=== PATIENT | female | born 1955 | race Caucasian/White ===

== ENCOUNTER → 2017-01-29 | Outpatient (CLI) | payer OTHER | LOC: CLAB 14:59 | PROVIDERS: ATTEND Family Medicine | DX: M50.322 Other cervical disc degeneration at C5-C6 level (principal) | CPT/HCPCS: 72040-PO ==

== ENCOUNTER → 2017-06-01 | Outpatient (CLI) | payer OTHER | LOC: CIMAGING 15:08 | PROVIDERS: ATTEND Family Medicine | DX: M51.36 Other intervertebral disc degeneration, lumbar region (principal); M53.86 Other specified dorsopathies, lumbar region | CPT/HCPCS: 72100-PO ==

== ENCOUNTER → 2017-07-24 | Outpatient (CLI) | payer OTHER | LOC: FIMAGING 19:16 | PROVIDERS: ATTEND Family Medicine | DX: S33.140A Subluxation of L4/L5 lumbar vertebra, initial encounter (principal); M51.36 Other intervertebral disc degeneration, lumbar region; M51.27 Other intervertebral disc displacement, lumbosacral region; M48.061 Spinal stenosis, lumbar region without neurogenic claudication ==

== ENCOUNTER 2017-10-04 17:45 | Emergency (ER) | payer OTHER ==
[2017-10-04] MEDS ORDERED: DEXAMETHASONE 10 MG/ML VIAL IVP ONE (18:41)
[2017-10-04] MEDS ORDERED: KETOROLAC 15 MG/1 ML SDV IVP ONE (18:41)
[2017-10-04] MEDS ORDERED: CYCLOBENZAPRINE 10 MG TAB PO ONE (18:43)
--- NOTE | 2017-10-04 18:43 | EDPHY ---
General Time Seen by Provider: 10/04/17 18:22 Narrative: CHIEF COMPLAINT: Low back pain HISTORY OF PRESENT ILLNESS: Patient presents with complaints of low back pain. This has been present for several months. It is located in the lumbar spine only. She does have radicular complaints into the left leg. She says she has had ongoing workup since May with MRIs, conservative therapy and epidural injections. She says over the past few days the pain has increased severely. She has some tingling of the leg and decreased size of her left calf. She has no numbness. No incontinence of bowel or bladder. No difficulty ambulating but it is painful. No trauma or injury. She has no fever or chills. No redness or warmth to the back. No headache. She contacted her forestry aide and physician at [facility] recommended she present to the emergency department. No other associated complaints or modifying factors. REVIEW OF SYSTEMS: Ten systems reviewed and are negative unless otherwise noted in the HPI PCP: Dr. Greenfield SPECIALISTS: [facility] PAST MEDICAL HISTORY: Fibromyalgia, chronic fatigue, TBI, sinusitis, hypertension PAST SURGICAL HISTORY: Hysterectomy, appendectomy, , sinus washout FAMILY HISTORY: Noncontributory EXAMINATION General Appearance: Alert, no distress Head: normocephalic, atraumatic Eyes: Pupils equal and round, no conjunctival pallor or injection ENT, Mouth: Mucous membranes moist Neck: Normal inspection, supple, non-tender Respiratory: Lungs are clear to auscultation Cardiovascular: Regular rate and rhythm Gastrointestinal: Abdomen is soft and nontender Back: non-tender, no bony abnormalities Neurological: GCS 15. A&O, nonfocal, steady gait. Patellar reflexes symmetric at 2+. Strength is 5/5 in the right lower extremity. Strength is 4/5 in the left knee and left ankle. Straight leg raises are negative symmetrically. Skin: Warm and dry, no rash. No erythema or signs of infection over the lumbar spine. Extremities: Nontender, no pedal edema. Symmetric range of motion lower extremities. Psychiatric: Mood and affect normal DIFFERENTIAL DIAGNOSES: Including but not limited to MDM: 6:35 p.m. Low back pain with left-sided radiculopathy of increasing severity over the past few days. Patient has a normal neuro examination with exception of mild weakness of the left knee and ankle compared to the right by 1. She has no incontinence of bowel or bladder. No saddle anesthesia. She is ambulatory without difficulty. She has been only on Tylenol Neurontin thus I have ordered IV steroids, IV Toradol and Flexeril. She is requesting no narcotics at this time. MRI was performed in July of this year we are reporting images. 7:15 p.m. Patient re-evaluated and is starting to feel better. I do feel she is stable for discharge home as she has no evidence of acute cord compression or cauda equina. I discussed with Dr. Flores and he agrees. She will be discharged home with Medrol Dosepak, tramadol and instructions to follow up with her established [facility] physician. I will also referral to Neurosurgery. She is comfortable this plan discharged home fully ambulatory in no acute distress but SUPERVISION: Patient was independently examined, but I discussed the case with my secondary supervising physician Dr. Flores - History Smoking Status: Former smoker - Objective Vital Signs: Initial Vital Signs Temperature (C) 98.2 F 10/04/17 17:52 Heart Rate 86 10/04/17 17:52 Respiratory Rate 18 10/04/17 17:52 Blood Pressure 205/95 H 10/04/17 17:52 O2 Sat (%) 96 10/04/17 17:52 O2 Delivery Mode Room Air Allergies/Adverse Reactions: acetaminophen [From Percocet] Allergy (Verified 10/04/17 17:49) oxycodone HCl [From Percocet] Allergy (Verified 10/04/17 17:49) Home Medications: Medication Instructions Recorded Atorvastatin Calcium 10/04/17 Diazepam [Valium 5 MG (*)] 5 mg PO TID PRN #15 tab 10/04/17 Fexofenadine HCl 10/04/17 Gabapentin 10/04/17 Levothyroxine 10/04/17 Losartan Potassium 10/04/17 Nexium 10/04/17 Ondansetron Odt [Zofran Odt 4 mg 4 mg PO Q6 PRN #12 tab 10/04/17 (*)] methylPREDNISolone [Medrol Dose 1 each PO AD #1 ea 10/04/17 Carl] traMADol [Ultram 50 mg (*)] 50 mg PO Q4 PRN #12 tab 10/04/17 Medications Given: Discontinued Medications Cyclobenzaprine HCl (Flexeril) 10 mg PO EDNOW ONE Stop: 10/04/17 18:44 Last Admin: 10/04/17 19:08 Dose: 10 mg Dexamethasone (Decadron Injection) 10 mg IVP EDNOW ONE Stop: 10/04/17 18:42 Last Admin: 10/04/17 19:09 Dose: 10 mg Ketorolac Tromethamine (Toradol) 15 mg IVP EDNOW ONE Stop: 10/04/17 18:42 Last Admin: 10/04/17 19:09 Dose: 15 mg Departure - Departure Disposition: Home, Routine, Self-Care Clinical Impression: Lumbar disc disease with radiculopathy Condition: Good Instructions: Lumbar Radiculopathy (ED) Additional Instructions: 1. Tramadol as prescribed as needed for pain 2. Medrol Dosepak as prescribed, 1st dose tomorrow morning with breakfast 3. Nausea medications as prescribed as needed 4. Valium as prescribed as needed for muscle relaxant 5. contact her established physicians and the neurosurgeon as provided for you this evening Referrals: Jeanne Greenfield DO [Primary Care Provider] - As per Instructions Sylvester Schumacher MD [Medical Doctor] - As per Instructions Prescriptions: Diazepam [Valium 5 MG (*)] 5 mg PO TID PRN #15 tab PRN Reason: Spasms methylPREDNISolone [Medrol Dose Carl] 1 each PO AD #1 ea Ondansetron Odt [Zofran Odt 4 mg (*)] 4 mg PO Q6 PRN #12 tab PRN Reason: Nausea/Vomiting, Use 1st traMADol [Ultram 50 mg (*)] 50 mg PO Q4 PRN #12 tab PRN Reason: Pain, Mild
[2017-10-04 19:46] VITALS: BP 160/92
== END 2017-10-04 19:46 | disposition home or self-care (01) ==
DX: M51.16 Intervertebral disc disorders with radiculopathy, lumbar region (principal); I10 Essential (primary) hypertension; Z87.891 Personal history of nicotine dependence
CPT/HCPCS: 96374; J1100; J1885

== ENCOUNTER → 2017-10-18 | Outpatient (CLI) | payer OTHER ==
[~2017-10-18] MED LIST: GADOBUTROL 10 ML VIAL IVP ONE
== END ==
LOC: FIMAGING 11:58
PROVIDERS: ATTEND Physician Assistant Medical
DX: R25.1 Tremor, unspecified (principal); R47.1 Dysarthria and anarthria; R41.3 Other amnesia; R94.02 Abnormal brain scan
CPT/HCPCS: A9585

== ENCOUNTER 2017-12-08 07:48 | Inpatient (IN) | payer OTHER ==
--- NOTE | 2017-12-08 08:05 | EDPHY ---
H & P Stated Complaint: CHRONIC BACK PAIN Time Seen by Provider: 12/08/17 08:04 - Personal History Current Tetanus Diphtheria and Acellular Pertussis (TDAP): No - Medical/Surgical History Hx Asthma: No Hx Chronic Respiratory Disease: No Hx Diabetes: No Hx Cardiac Disease: No Hx Renal Disease: No Hx Cirrhosis: No Hx Alcoholism: No Hx HIV/AIDS: No Hx Splenectomy or Spleen Trauma: No Other PMH: Fibromyalgia/chronic fatigue. Mild traumatic brain injury. allergies/sinusitis when young. htn not currently being treated/no pcp. thyroid condition/not being treated/no pcp. hyster,appy,csection,sinus surgery - Social History Smoking Status: Former smoker Constitutional: Initial Vital Signs Temperature (C) 36.6 C 12/08/17 07:54 Heart Rate 84 12/08/17 07:54 Respiratory Rate 18 12/08/17 07:54 Blood Pressure 174/91 H 12/08/17 07:54 O2 Sat (%) 96 12/08/17 07:54 O2 Delivery Mode Room Air Allergies/Adverse Reactions: oxycodone HCl [From Percocet] Allergy (Severe, Verified 12/08/17 10:34) Hives acetaminophen [From Percocet] Allergy (Verified 12/08/17 07:50) Home Medications: Medication Instructions Recorded Gabapentin 10/04/17 Levothyroxine 10/04/17 Losartan Potassium 10/04/17 traMADol [Ultram 50 mg (*)] 50 mg PO Q4 PRN #12 tab 10/04/17 Chlorthalidone 12/08/17 Primidone 12/08/17 Tizanidine HCl 12/08/17 Medical Decision Making - Diagnostics Imaging: I viewed and interpreted images myself ED Course/Re-evaluation: CHIEF COMPLAINT: Back pain HISTORY OF PRESENT ILLNESS: The patient is a 62 y/o female with a history of fibromyalgia, chronic fatigue, and lumbar stenosis complaining of worsening back pain associated with left leg pain and tingling acute on chronic onset 3 weeks ago. In May, 7 months ago , she developed a tingling sensation in her left foot and was diagnosed with mild stenosis. Her symptoms continued to progress including development of low back pain with radiculopathy and a left leg tremor. She had a lumbar spine MRI preformed in July. This MRI revealed a left paracentral disk protrusion causing mild left lateral recess stenosis and borderline spinal stenosis. She has since had a brain MRI and thoracic spine MRI without significant findings. Due to her MRI findings she has seen Dr. Temple, neurosurgeon, and was referred to a neurologist for her left leg tremor. Yesterday her pain exacerbated and she developed a sharp, stabbing, burning pain in her back associated with tingling and numbness in the ball of her left foot. She has also developed a decreased appetite. Due to her symptoms she called Dr. Temple this morning and his office advised that she present to the emergency department. She has been taking Tramadol and a muscle relaxant with mild relief of symptoms. She denies headache, chest pain, shortness of breath, abdominal pain, urinary or bowel complaints, fevers. REVIEW OF SYSTEMS: A comprehensive 10 system review of systems is otherwise negative aside from elements mentioned in the history of present illness and medical decision making. PHYSICAL EXAM: HR, BP, O2 Sat, RR. Temp noted General Appearance: Alert, well hydrated, appropriate, and non-toxic appearing. Head: Atraumatic without scalp tenderness or obvious injury Eyes: Pupils equal, round, reactive to light and accommodation, EOMI, no trauma , no injection. Ears: Clear bilaterally, no perforation, normal landmarks Nose: Atraumatic, no rhinorrhea, clear. Throat: There is no erythema or exudates, no lesions, normal tonsils, mucus membranes moist. Neck: Supple, 2+ carotid upstroke, nontender, no lymphadenopathy. Respiratory: No retractions, no distress, no wheezes, and no accessory muscle use. Lungs are clear to auscultation bilaterally. Cardiovascular: Regular rate and rhythm, no murmurs, rubs, or gallops. Bilateral carotid, radial, dorsalis pedis, and posterior tibial pulses intact. Good capillary refill all extremities. Gastrointestinal: Abdomen is soft, nontender, non-distended, no masses, no rebound, no guarding, no peritoneal signs. Musculoskeletal: Normal active ROM of all extremities, atraumatic. Neurological: Fasciculation of the left leg; weak anterior tibialis motor deficit. Alert, appropriate, and interactive. The patient has normal DTRs and non-focal cranial nerves, sensory, and cerebellar exam. Skin: No rashes, good turgor, no nodules on palpation. Past medical history: Fibromyalgia/chronic fatigue, mild traumatic brain injury , hypertension Past surgical history: Hysterectomy, appendectomy, sinus surgery Family history: Denies Social history: at bedside, lives in [place], employed DIAGNOSTICS/PROCEDURES/CRITICAL CARE TIME: EKG: The 12 lead EKG was interpreted by myself as sinus rhythm with a rate of 83. See hard copy and/or "tracemaster" electronic copy for interpretation. Chest x-ray: No acute findings DIFFERENTIAL DIAGNOSIS: The differential diagnosis for the patient's back pain included but was not limited to musculoskeletal pain, epidural abscess, herniated disk, spinal fracture, and intra-abdominal causes including urinary system. MEDICAL DECISION MAKING: The patient is a 62 y/o female with a history of fibromyalgia, chronic fatigue, and lumbar stenosis presenting with worsening back pain associated with left leg pain and tingling acute on chronic onset 3 weeks ago. In July she had an L- spine MRI which revealed a left paracentral disk protrusion causing mild left lateral recess stenosis and borderline spinal stenosis. On exam she has fasciculation of the left leg with a weak anterior tibialis motor deficit. I will consult with the on-call neurosurgeon prior to ordering labs or imaging. 0820: I consulted with Dr. Temple, neurosurgeon, regarding this patient. He will come into the emergency department to consult on this patient. 0825: Reassessed patient and discussed plan for Dr. Temple's consultation; she is comfortable with this plan. 0934: I consulted with Dr. Temple regarding this patient. He will take this patient to the OR to perform and L4-S1 spinal fusion. Pre-operative EKG, chest x -ray, and labs ordered. 0941: I consulted with hospitalist service, Dr. Davies will preform a medical clearance prior to surgery. 1014: I interpreted patient's EKG as sinus rhythm with a rate of 83. 1042: Dr. Davies has performed medical clearance and would like to adjust the patients electrolytes prior to surgery. - Data Points Medications Given: Discontinued Medications Hydromorphone HCl (Dilaudid) 0.5 mg IVP EDNOW ONE Stop: 12/08/17 10:29 Last Admin: 12/08/17 10:38 Dose: 0.5 mg Departure - Departure Disposition: [facility] [place] [facility] Clinical Impression: Lower back pain Qualifiers: Chronicity: chronic Back pain laterality: left Sciatica presence: with sciatica Sciatica laterality: sciatica of left side Qualified Code(s): M54.42 - Lumbago with sciatica, left side Condition: Fair Report Scribed for: Yemi Hernandez Report Scribed by: Nirmala Vazquez Date of Report: 12/08/17 Time of Report: 08:08
[2017-12-08 09:58] LABS: PLATELET COUNT 269 10^3/uL (150-400)
[2017-12-08] MEDS ORDERED: PROMETHAZINE HCL 25 MG/ML INJ IVP PRN (09:59)
[2017-12-08] MEDS ORDERED: ONDANSETRON 4 MG/2 ML VIAL IVP PRN (09:59)
[2017-12-08] MEDS ORDERED: ceFAZolin 2 GM/DEXTROSE 100 ML IV ONE (09:59)
[2017-12-08] MEDS ORDERED: morphINE PF 0.2 MG in SYRINGE INTRATHECAL 1 SYR IT ONE (09:59)
[2017-12-08] MEDS ORDERED: oxyCODONE IR 5 MG TAB PO PRN (09:59)
[2017-12-08] MEDS ORDERED: GABAPENTIN 300 MG CAP PO ONE (09:59)
[2017-12-08] MEDS ORDERED: NS 1,000 ML IV SCH (10:00)
[2017-12-08 10:07] LABS: INR 1.04 (0.83-1.16); PROTIME(PATIENT) 13.8 SEC (12.0-15.0)
--- NOTE | 2017-12-08 10:22 | CPEKG ---
Test Reason : OPEN Blood Pressure : / mmHG Vent. Rate : 083 BPM Atrial Rate : 085 BPM P-R Int : 067 ms QRS Dur : 102 ms QT Int : 414 ms P-R-T Axes : 000 -16 036 degrees QTc Int : 487 ms Sinus rhythm Short MN interval Borderline left axis deviation Minimal ST elevation, anterior leads Borderline prolonged QT interval Confirmed by Yemi Hernandez ([id number]) on 12/08/2017 10:22:06 AM Referred By: Confirmed By:Yemi Hernandez
--- NOTE | 2017-12-08 10:22 | CPEKG ---
Test Reason : OPEN Blood Pressure : / mmHG Vent. Rate : 083 BPM Atrial Rate : 080 BPM P-R Int : 154 ms QRS Dur : 087 ms QT Int : 401 ms P-R-T Axes : -09 -19 001 degrees QTc Int : 472 ms Atrial flutter Inferior infarct, old Confirmed by Yemi Hernandez ([id number]) on 12/08/2017 10:21:59 AM Referred By: Confirmed By:Yemi Hernandez
[2017-12-08] MEDS ORDERED: HYDROmorphONE/DILAUDID 1 MG/ML INJ IVP ONE (10:28)
--- NOTE | 2017-12-08 10:30 | GHP ---
DATE OF ADMISSION: 12/08/2017 REASON FOR CONSULTATION: Intractable low back pain with left lower extremity radiculopathy, pain, and weakness. HISTORY OF PRESENT ILLNESS: Ms. Perez is well known to my service as she has been followed for low back pain, left lower extremity radiculopathy, and weakness. She has seen her PCP back in May 2017, because she noticed tingling in the left foot. She was recommended pain medications and the time. It continually got worse and started progressing into the left calf and posterior thigh. She then started noting worsening tremor left leg with increasing severe low back pain and pain in the left lower extremity with shooting, burning pain. The pain was constant and affect the overall quality of life and ability to perform ADLs. She also notes weakness into the left leg. No right-sided symptoms except for a little bit of numbness which has developed this morning into the bilateral feet. No arm symptoms. No history of prior spine surgery. No bowel or bladder incontinence. She does have a past medical history significant for of fibromyalgia and chronic fatigue syndrome, for which she has been followed at [facility] and undergone prior injections. She recently underwent an injection with Dr. Byrd on September 28, 2017, left L5 and S1 with 25% improvement and Dr. Rai at L3-L4 with no benefit. She has had prior cervical injection with no benefit as well. She has done 8+ weeks of physical therapy with no benefit. 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 She is also taking gabapentin without benefit as well as completed 2 rounds of oral steroids. She called on the morning of December 08 because of intractable low back pain with left lower extremity worsening pain and foot weakness with some associated numbness in the bilateral feet. She was sent to the emergency department for further evaluation and management. This morning she states she has intractable pain, is not able to get up out of bed. No bowel or bladder incontinence and no new changes neurologically. No shortness of breath, chest pain. She is feeling more weakness into the left foot and leg and cannot stand and support her weight safely. REVIEW OF SYSTEMS: Complete 10-point review of systems from the patient's intake form reviewed by myself significant only for those noted above in the HPI. PAST MEDICAL HISTORY: 1. Fibromyalgia. 2. Chronic fatigue syndrome. 3. Mild traumatic brain injury. 4. Allergic sinusitis. 5. Hypertension. 6. Thyroid condition. PAST SURGICAL HISTORY: 1. Hysterectomy. 2. Appendectomy. 3. . 4. Sinus surgery. SOCIAL HISTORY: She is a former smoker, but currently does not utilize tobacco. She is . No other illicit drug use. ALLERGIES: 1. Tylenol. 2. Oxycodone. MEDICATIONS: 1. Gabapentin 400 mg. 2. Levothyroxine 50 mcg. 3. Losartan 25 mg. 4. Chlorthalidone 25 mg. 5. Atorvastatin 20 mg. 6. Omeprazole delayed release 20 mg. 7. Tylenol 325 mg. 8. Tizanidine. FAMILY HISTORY: Noncontributory. PHYSICAL EXAMINATION: VITAL SIGNS: Blood pressure is 174/91, heart rate is 84 , respiratory rate is 18, saturating 96% on room air, temperature is 36.6. GENERAL: The patient is lying on the gurney, appears to be very uncomfortable. Her is at the bedside. She is otherwise quite pleasant and cooperative with the examination. HEAD: Atraumatic. NEUROLOGIC: Cranial nerves 2-12 are intact. Pupils are equal, round, react to light bilaterally. Extraocular movements intact. Face symmetric. Tongue protrudes midline. Uvula and palate elevate symmetrically. She has intact hearing to light conversation. Shoulder shrug is symmetric. Motor exam shows 5/5 strength with bilateral math tutor strength biceps, triceps, deltoid, right hip flexion, knee flexion and extension, plantar and dorsiflexion, and extensor hallucis longus on the right lower extremity. She has 3/5 left plantar dorsiflexion and left EHL. 3+/5 left knee flexion, extension, and left hip flexion. SENSORY: She has diminished sensation to light touch in the bilateral feet, but otherwise intact throughout all major dermatomes of the bilateral upper and lower extremities throughout. OTHER: Reflexes are 3+ at the bilateral brachioradialis and patella. Negative Aleman's, no Babinski. OTHER: She has a resting tremor in her left greater than right leg. Straight leg raise testing is positive on the left and negative on the right. MEDICAL DECISION MAKING: Patient underwent an MRI of the lumbar spine, reviewed by myself at the [facility] PAC system. This demonstrates a disk bulge with ligamentum flavum hypertrophy and facet hypertrophy at L4-5 with minimal subluxation contributed to spinal and neural foraminal stenosis. There is a mild left paracentral disk protrusion without significant consequence of L5-S1 with a left-sided foraminal disk herniation at L5-S1. There is moderate to severe foraminal stenosis left-side L4-5, L5-S1. Lumbar spine x-rays demonstrate multilevel degenerative disk disease of the lumbar spine most pronounced at L4-5 with grade 1 anterolisthesis L4 and L5. ASSESSMENT AND PLAN: Ms. Perez is a 62-year-old woman who is well known to me with a several month history of progressive low back pain, left lower extremity radiculopathy, and now progressive left leg and foot weakness. She presents because she can no longer tolerate the pain and has worsening symptoms. I reviewed with her extensively and her the optional interventions including discharge with outpatient followup, pain medications, continued physical therapy and injections. Her and feel that she is not able to be discharged home safely because of her intractable pain and weakness and would like to proceed with surgery. The original outpatient plan was for just an L4-5 level, but given the fact that she now has pretty impressive weakness of the left foot, will also incorporate the L5-S1 level. We will plan for a left-sided L4-L5 and L5-S1 facetectomy with nerve root decompression and a posterior spinal fusion L4-S1 with TLIFs at the left L4-5 and L5-S1. Risks, benefits, and treatment were discussed extensively with the patient and no guarantee of benefit was offered. She does understand that a lot of her symptoms will not improve secondary to the fact that she has other neurological conditions going on for which she has been followed by Neurology. Consents have been signed. Back has been marked. We will plan for surgical intervention if cleared by Medicine and Cardiology. Please note, this plan was discussed with Dr. Hernandez of the ER as well as the patient and her who are all in agreement. /[id number]/MODL MTDD
[2017-12-08] MEDS ORDERED: HYDROmorphONE/DILAUDID 2 MG TAB PO PRN (10:52)
--- NOTE | 2017-12-08 11:41 | GCON ---
DATE OF CONSULTATION: 12/08/2017 REFERRING PHYSICIAN: Tej Temple MD REASON FOR CONSULTATION: Medical management evaluation prior to surgery. HPI: A 62-year-old female with fibromyalgia, chronic fatigue syndrome, hypertension who has been fol lowed by Dr. Temple for lower back pain and left lower extremity radiculopathy. She saw her PCP back in 2018 because she noticed tingling in that foot, and was recommended pain medications at that time . This pain progressed to the left calf and posterior thigh. This was accompanied by a worsening tr emor in that leg. Describes it as shooting and burning. Over the past 3 days, the pain has been 8/1 0, so she came to the ER. She has been taking gabapentin, status post 2 rounds of oral steroids, but pain is still unbearable. She has had diarrhea for the last 2 days, 3-4 episodes. No recent antibi otics. Has had minimal to eat or drink in the last couple days, per patient's due to her wojciech k pain. No fevers. No cramping abdominal pain, chills. REVIEW OF SYSTEMS: I completed a 10-point review of systems, negative except as noted in HPI. PAST MEDICAL HISTORY: Fibromyalgia, chronic fatigue syndrome, mild TBI, allergic sinusitis, hyperten mayela, hypothyroidism. PAST SURGICAL HISTORY: Hysterectomy, appendectomy, breast reduction, liposuction, sinus surgery x3, , shoulder surgery. FAMILY HISTORY: [place] on her mother's side. SOCIAL HISTORY: Lives with her in [place]. No tobacco, alcohol or illicits. HOME MEDICATIONS: Tizanidine, primidone, chlorthalidone, tramadol, losartan, levothyroxine, gabapent in. ALLERGIES: Oxycodone, Tylenol. PHYSICAL EXAMINATION: VITAL SIGNS: Temperature 36.9, blood pressure 145/79, heart rate in the 80s, respirations 16, 96% on room air. GENERAL: She is fatigued, pale, uncomfortable. HEENT: PERRLA. Dry mucous membranes. CV: Regular rate and rhythm. LUNGS: clear. ABDOMEN: Soft, nontender, nondi stended. Positive bowel sounds. : No Meyer. MUSCULOSKELETAL: Weakness of lower left extremity with tremor. NEURO: Resting tremor, left greater than right leg. PSYCH: Alert and oriented x3. F lat affect. LABS: WBC 7, hemoglobin 14, hematocrit 38, platelets 269. Coags within normal. Sodium 132, potassi um 3.2, chloride 91, BUN 12, creatinine 0.8, glucose 74, calcium 9.7. EKG is personally reviewed by me. Normal sinus rhythm. U-waves with shortened NE. No delta wave. ASSESSMENT AND PLAN: 1. Electrolyte derangement: She has hypokalemia due to decreased p.o. intake. Evidence via U-wave on EKG. I would replete electrolytes prior to surgery. Magnesium is pending. Klor-Con now and repe at [facility] this afternoon. 2. Hypovolemic hyponatremia: Endorses decreased p.o. intake. Will hydrate with IV fluids, repeat. 3. [id number] back pain: Plan for diskectomy per Dr. Temple once electrolytes stabilized. 4. Chronic fatigue syndrome, stable. 5. Hypothyroidism: Resume levothyroxine. 6. Hypertension: Losartan. Hold diuretic. 7. Diet: Regular, n.p.o. after midnight. 8. Deep venous thrombosis prophylaxis: Per Neurosurgeon. Thank you for this consultation. We will follow along. Please call if any questions. /[id number]/MODL
--- NOTE | 2017-12-08 12:57 | PDMN ---
Medical Necessity Medical necessity: Pt meets inpt criteria per MD order and [facility] S-[id number], Lumbar Fusion, inpt only surgery, 3 days. Est LOS> 2MN for spinal surgery and post-op care. Pt w/hx spinal stenosis presents w/severe back pain, LLE radiculopathy, and progressive weakness. Neurosurg consult, pt will have surgical intervention including post spinal fusion L4-5 and L5-S1 and TLIF later today.
[2017-12-08] MEDS: POTASSIUM CL 20 MEQ TAB PO ONE ×2 (13:11→13:19)
[2017-12-08] MEDS: NS 1,000 ML IV SCH (13:14)
[2017-12-08] MEDS ORDERED: MAGNESIUM SULF 2 GM/WATER 50 ML IV ONE (13:14)
[2017-12-08] MEDS ORDERED: POTASSIUM CL 20 MEQ TAB PO ONE (13:15)
--- NOTE | 2017-12-08 17:15 | ASMTCMCOM ---
CM Note CM Note Notes: 12/08/2017 Case Management Note Reviewed chart. Pt admitted for never impingement and pain. Plan for surgery per ED note. Pt is and lives in [place]. There are PT and OT evals pending. Case Management d/c poc: To be determined. Case Management to follow. Date Signed: 12/08/2017 05:14 PM Electronically Signed By:Patricia Hodges RN
[2017-12-08] MEDS: HYDROmorphONE/DILAUDID 2 MG TAB PO PRN ×2 (19:21→20:16)
[2017-12-08] MEDS ORDERED: tiZANidine HCL 2 MG TAB PO PRN (22:18)
[2017-12-08] MEDS ORDERED: GABAPENTIN 100 MG CAP PO SCH (22:30)
[2017-12-08] MEDS ORDERED: GABAPENTIN 300 MG CAP PO SCH (22:30)
[2017-12-08] MEDS: PRIMIDONE 50 MG TAB PO SCH (22:57)
[2017-12-09] MEDS ORDERED: PROTOCOL POTASSIUM 1 DOSE MISC PRN (00:56)
[2017-12-09] MEDS: HYDROmorphONE/DILAUDID 2 MG TAB PO PRN (03:11)
[2017-12-09] MEDS: LEVOTHYROXINE 50 MCG TAB PO SCH (06:36)
[2017-12-09] MEDS ORDERED: POTASSIUM CL 10 MEQ TAB PO ONE (07:02)
--- NOTE | 2017-12-09 07:03 | PDHPUP ---
History & Physical Update H&P update statement: This history and physical update is based on an assessment of the patient which was completed after admission or registration (within 24 hours), but prior to the surgery/procedure. H&P update: H&P reviewed & patient examined, no change in patient's condition since H&P completed (Patient with continued left foot and leg weakness. Pain is improved this morning but she does not feel she can discharge home safely. Risks and benefits of surgery were reviewed again and no guarantee of outcome was made. Consents have been signed and her surgical site marked. All questions answered. Surgery this morning as she has been cleared by Medicine and Cardiology.)
[2017-12-09] MEDS ORDERED: GABAPENTIN 300 MG CAP ONE (07:17)
[2017-12-09] MEDS ORDERED: CEFAZOLIN 2 GM/DEXTROSE/100 ML BAG IV ONE (07:18)
[2017-12-09] MEDS ORDERED: CHLORHEXIDINE GLUC HIBICLENS 118 ML BTL TP ONE (07:30)
[2017-12-09] MEDS ORDERED: THROMBIN (BOVINE) 20,000 UNIT VIAL TP ONE (07:30)
[2017-12-09] MEDS ORDERED: BACITRACIN 50,000 UNITS/10 ML SYR IRR ONE (07:31)
[2017-12-09] MEDS ORDERED: BUPIVACAINE 0.25% 30 ML SDV ONE (07:31)
[2017-12-09] MEDS ORDERED: EPINEPHrine 1 MG/ML INJ ONE (07:31)
[2017-12-09] MEDS ORDERED: morphINE PF 5 MG/10 ML INJ IT ONE (07:51)
--- NOTE | 2017-12-09 07:55 | PDANEPAE ---
ANE History of Present Illness lumbar radiculopathy here for TLIF ANE Past Medical History - Cardiovascular History Hx Hypertension: Yes - Pulmonary History Hx Asthma/Reactive Airway Disease: Yes Hx Oxygen in Use at Home: No Hx Sleep Apnea: No Sleep Apnea Screening Result - Last Documented: Positive - Endocrine History Hx Diabetes: No Hypothyroid: Yes - Chronic Pain History Chronic Pain: Yes ANE Review of Systems Review of Systems: - Exercise capacity Exercise capacity: >=4 METS ANE Patient History - Allergies Allergies/Adverse Reactions: oxycodone HCl [From Percocet] Allergy (Severe, Verified 12/08/17 10:34) Hives acetaminophen [From Percocet] Allergy (Verified 12/08/17 07:50) - Home Medications Home Medications: Acetaminophen [Tylenol ES 500 mg (*)] 500 - 1,000 mg PO Q8 12/08/17 [Last Taken 12/07/17] Chlorthalidone [Chlorthalidone 25 mg (*)] 25 mg PO DAILY@1600 12/08/17 [Last Taken 12/07/17] Gabapentin [Neurontin 100 MG (*)] 100 mg PO BID 12/08/17 [Last Taken 12/07/17] Gabapentin [Neurontin 300 MG (*)] 300 mg PO BID 12/08/17 [Last Taken 12/07/17] Levothyroxine [Synthroid 50 mcg (*)] 50 mcg PO DAILY06 12/08/17 [Last Taken ] Losartan Potassium [Cozaar 25 mg (*)] 25 mg PO DAILY 12/08/17 [Last Taken ] Losartan Potassium [Cozaar 50 mg (*)] 50 mg PO DAILY 12/08/17 [Last Taken ] Primidone [Mysoline 50mg (RX)] 50 mg PO HS 12/08/17 [Last Taken 12/07/17] tiZANidine HCL [Zanaflex 2MG (*)] 2 mg PO TID PRN 12/08/17 [Last Taken 12/07/17] - NPO status NPO Status: no food or drink >8 hours NPO Since - Liquids (Date): 12/09/17 NPO Since - Liquids (Time): 00:00 NPO Since - Solids (Date): 12/09/17 NPO Since - Solids (Time): 00:00 - Anes Hx Anes Hx: no prior problems - Smoking Hx Smoking Status: Former smoker - Alcohol Use Alcohol Use: None - Family Anes Hx Family Anes Hx: none ANE Labs/Vital Signs - Labs Result Diagrams: 12/08/17 09:40 12/09/17 04:28 - Vital Signs Blood Pressure: 131/75 Heart Rate: 78 Respiratory Rate: 16 O2 Sat (%): 92 Height: 162.56 cm Weight: 58.06 kg ANE Physical Exam - Airway Neck exam: FROM Mallampati Score: Class 2 Mouth exam: normal dental/mouth exam - Pulmonary Pulmonary: no respiratory distress, clear to auscultation - Cardiovascular Cardiovascular: regular rate and rhythym, no murmur, rub, or gallop - ASA Status ASA Status: II ANE Anesthesia Plan Anesthesia Plan: general endotracheal anesthesia Total IV Anesthesia: Yes
[2017-12-09] MEDS ORDERED: MIDAZOLAM 2 MG/2 ML VIAL IVP ONE (07:56)
[2017-12-09] MEDS ORDERED: fentaNYL 100 MCG/2 ML INJ ONE ×3 (08:01→13:03)
[2017-12-09] MEDS ORDERED: PROPOFOL 200 MG/20 ML VIAL ONE (08:01)
[2017-12-09] MEDS ORDERED: REMIFENTANIL HCL 1 MG VIAL ONE ×2 (08:01→11:45)
[2017-12-09] MEDS ORDERED: PROPOFOL/EMULSION 500 MG/50 ML BOTTLE IV ONE ×2 (08:01→11:45)
[2017-12-09] MEDS ORDERED: LIDOCAINE 2% 100 MG/5 ML SYR ONE (08:02)
[2017-12-09] MEDS ORDERED: ROCURONIUM 50 MG/5 ML VIAL ONE (08:02)
[2017-12-09] MEDS ORDERED: MIDAZOLAM 2 MG/2 ML VIAL ONE (08:18)
[2017-12-09] MEDS ORDERED: ePHEDrine SULFATE 25 MG/5 ML SYR ONE (08:33)
[2017-12-09] MEDS ORDERED: PHENYLEPHRINE 10 MG/ML SDV ONE (08:50)
[2017-12-09] MEDS ORDERED: BISACODYL 10 MG SUPP PR PRN (08:58)
[2017-12-09] MEDS ORDERED: LACTULOSE 20 GM/30 ML UDCUP PO PRN (08:58)
[2017-12-09] MEDS ORDERED: POLYETHYLENE GLYCOL 3350 17 GM PKT PO PRN (08:58)
[2017-12-09] MEDS ORDERED: MAGNESIUM HYDROXIDE 30 ML UDCUP PO PRN (08:58)
[2017-12-09] MEDS ORDERED: LOSARTAN POTASSIUM 25 MG TAB PO SCH (09:00)
--- NOTE | 2017-12-09 09:01 | CPEKG ---
Test Reason : OPEN Blood Pressure : / mmHG Vent. Rate : 089 BPM Atrial Rate : 089 BPM P-R Int : 173 ms QRS Dur : 101 ms QT Int : 404 ms P-R-T Axes : 045 -12 035 degrees QTc Int : 492 ms Sinus rhythm Probable left atrial enlargement Borderline prolonged QT interval Confirmed by Arthur Royal ([id number]) on 12/09/2017 9:01:33 AM Referred By: Confirmed By:Arthur Royal
[2017-12-09] MEDS ORDERED: NALOXONE HCL 0.4 MG/ML INJ IVP PRN (12:31)
[2017-12-09] MEDS ORDERED: HYDROmorphONE/DILAUDID 1 MG/ML INJ IVP PRN (12:31)
[2017-12-09] MEDS ORDERED: HYDROCODONE/APAP 5/325 TAB PO PRN (12:31)
[2017-12-09] MEDS ORDERED: ONDANSETRON 4 MG/2 ML VIAL IVP PRN (12:31)
--- NOTE | 2017-12-09 12:33 | POSTANESTH ---
Post Anesthetic Evaluation Cardiovascular Status: Normal, Stable, Similar to Pre-Op Cond Respiratory Status: Normal, Stable, Similar to Pre-op Cond. Level of Consciousness/Mental Status: Can Participate in Eval, Mildly Sleepy, Arousable Pain Control: Adequate, Prn Tx Ordered Nausea/Vomiting Control: Adequate, Prn Tx Ordered Complications Possibly Related to Anesthesia: None Noted
--- NOTE | 2017-12-09 12:42 | POSTOPPROG ---
Post Op Note Date of Operation: 12/09/17 Surgeon: Tej Temple Electrical/Instrument Technician: Zaira Diaz NP Anesthesiologist: Dr Colindres Anesthesia: GET(General Endotracheal) Pre-op Diagnosis: Lumbar Stenosis Procedure: L4-5, L5-S1 TLIF Inf/Abcess present in the surg proc area at time of surgery?: No Depth: Deep Incisional (Fascial) EBL: 100-500 Total fluids administered: See anesthesia Complications: none Drains: Jose Yu Date of Surgery: 12/09/17 Post Op Day: 0 Assessment/Plan: Assessment: 62 yr old F s/p L4-5, L5-S1 TLIF for spondy and left foot weakness Plan: -Admit Med surg -Pain management: patient received IT duramorph intra-op -PT/OT -Post op xrays pending for am -Wear brace when out of bed, contact Window Installer to fit with lumbar brace -KOBI to suction Please call neurosurgery with any questions/concerns Subjective: Waking up in PACU Objective: Waking up in PACU No droop MAEx4 5/5 BUE, 5/5 BLE with exception of Left DF 5- Sensation intact to light touch BLE Dressing CDI OKBI patent Appropriate Neuro Check Frequency Ordered: Yes
[2017-12-09] MEDS ORDERED: HYDROmorphONE/DILAUDID 1 MG/ML INJ ONE (13:03)
[2017-12-09] MEDS: fentaNYL 100 MCG/2 ML INJ IVP PRN ×2 (13:09→13:26)
[2017-12-09] MEDS: NS 1,000 ML IV SCH (14:37)
[2017-12-09] MEDS: ceFAZolin 2 GM/DEXTROSE 100 ML IV SCH ×2 (14:38→21:06)
[2017-12-09] MEDS: FAMOTIDINE 20 MG TAB PO SCH ×2 (14:41→20:59)
[2017-12-09] MEDS: METHOCARBAMOL 750 MG TAB PO SCH ×4 (14:42→21:00)
[2017-12-09] MEDS: GABAPENTIN 400 MG CAP PO SCH ×2 (14:42→21:00)
[2017-12-09] MEDS: SENNOSIDES/DOCUSATE SODIUM TAB PO SCH ×2 (14:42→20:59)
--- NOTE | 2017-12-09 14:59 | HOSPPROG ---
Hospitalist Progress Note Assessment/Plan: #Hypokalemia/hypomagnesium: repleted #Spondylitis/left foot weakness: s/p L4-5, L5-S1 TLIF today. Pain control oer NSGY #Hypovolemic hyponatremia: Endorses decreased p.o. intake. Hold diuretic #Hypothyroidism: levothyroxine. #Hypertension: hold BP meds #DVT ppx: per NSGY Subjective: no pain after surgery Objective: Vital Signs Temp Pulse Resp BP Pulse Ox 36.6 C 92 14 115/80 100 12/09/17 14:17 12/09/17 14:17 12/09/17 14:17 12/09/17 14:17 12/09/17 14:17 Laboratory Results 12/08/17 09:40 12/09/17 04:28 12/08/17 12/09/17 12/10/17 05:59 05:59 05:59 Intake Total 3100 1000 Output Total 500 650 Balance 2600 350 PT 13.8 SEC (12.0-15.0) 12/08/17 09:40 INR 1.04 (0.83-1.16) 12/08/17 09:40 - Time Spent With Patient Time Spent with Patient: greater than 35 minutes Time Spent with Patient: Greater than 35 minutes spent on this patients care, greater than 50% of time spent counseling, educating, and coordinating care regarding the above mentioned plan. - Physical Exam Constitutional: no apparent distress Ears, Nose, Mouth, Throat: dry mucous membranes Cardiovascular: regular rate and rhythym Respiratory: no respiratory distress Gastrointestinal: normoactive bowel sounds Genitourinary: no bladder fullness Skin: warm Musculoskeletal: other (back KOBI drain in place) Neurologic: CN II-XII Intact, other (mild leg tremor) ICD10 Worksheet Patient Problems: Problems Problem Status Onset Lower back pain Acute
[2017-12-09] MEDS: ERYTHROMYCIN 0.5% 1 GM OPHT.OINT RTEYE SCH ×2 (15:13→21:07)
[2017-12-09] MEDS: HYDROCODONE/APAP 5/325 TAB PO PRN (15:13)
[2017-12-09] MEDS ORDERED: CHLORTHALIDONE 25 MG TAB PO SCH (16:00)
--- NOTE | 2017-12-09 18:13 | GOP ---
DATE OF OPERATION: 12/09/2017 SURGEON: Tej Temple MD NEUROSURGEON: Tej Temple MD. STATEMENT CLERKS SUPERVISOR: Zaira Diaz NP. ANESTHESIA: General. PREOPERATIVE DIAGNOSIS: 1. L4-5 grade 1 spondylolisthesis with lateral recess and left foraminal stenosis. 2. L5-S1 left foraminal synovial cyst with nerve compression. 3. Low back pain and left lower extremity radiculopathy with progressive weakness. 4. Treatment refractory to nonoperative intervention. POSTOPERATIVE DIAGNOSIS: 1. L4-5 grade 1 spondylolisthesis with lateral recess and left foraminal stenosis. 2. L5-S1 left foraminal synovial cyst with nerve compression. 3. Low back pain and left lower extremity radiculopathy with progressive weakness. 4. Treatment refractory to nonoperative intervention. PROCEDURE PERFORMED: 1. Posterior arthrodesis with approach at L4, L5, and S1. 2. Posterolateral fusion with bilateral pedicle screw placement at L4, L5, and S1 from the VenJuvo 4.75 system. 3. Decompressive laminectomy with bilateral medial facetectomies, L4-L5 and L5- S1. 4. Left-sided L4-L5 aggressive facetectomy and transforaminal lumbar interbody fusion with a 9 x 23 mm titanium polyetheretherketone elevate cage filled with morselized autograft and allograft. 5. Left-sided L5-S1 aggressive facetectomy, foraminal synovial cyst resection and transforaminal lumbar interbody fusion with an 8 x 28 mm titanium polyetheretherketone elevate cage filled with morselized autograft and allograft. 6. Posterolateral fusion on the right between L4 and S1 with morselized autograft and allograft. 7. Use of intraoperative 3D Stealth navigation. 8. Use of intraoperative fluoroscopy, less than 1 hour of physician time. 9. Use of neuromonitoring. 10. Injection of preservative-free intrathecal narcotics. FINDINGS: She had a left-sided L5-S1 synovial cyst causing nerve compression. ESTIMATED BLOOD LOSS: 100 mL. COMPLICATIONS: None. INDICATIONS: Ms. Perez is a 62-year-old woman who has been followed in my clinic. She presents to the emergency department with progressive weakness in her left foot and intractable back pain. The patient has known stenosis in the lateral recess and foramina on the left-side L4-5 and a left L5-S1 foraminal cyst causing nerve compression. After discussion of the risks, benefits, and treatment alternatives and given the fact that she has had progressive neurological deficits and intractable pain, we decided to proceed forth with surgery as described above. DESCRIPTION OF PROCEDURE: The patient was brought to the operating theater and underwent general endotracheal anesthesia without complications. She had Venodynes, ANNE MARIE hose, and appropriate lines placed by Anesthesia. She was then flipped prone onto the Jose table. All bony processes inspected and padded. The lower lumbar region was then prepped and draped in the usual sterile surgical fashion. A time-out was completed per protocol, and the patient received antibiotics within 1 hour of incision. Using lateral fluoroscopy and a spinal needle, we then picked our entry point at the L4 through S1 levels. This was marked in the midline. The incision was infiltrated with Marcaine with epinephrine. The incision was taken down with the scalpel blade and then using the monopolar, taken down the midline through the lumbodorsal fascia and subperiosteal dissection was carried out to the transverse processes of L4 and L5 bilaterally. Care was taken to preserve the bilateral L3-L4 facet joint. Deep retractors were placed to maintain exposure. We confirmed our level using lateral fluoroscopy. We attached the 3D Stealth navigation clamp to the spinous process of L4 and completed a 3D Stealth navigation spin. Using 3D Stealth navigation, we placed the helicopter pilot holes for the bilateral pedicle screws at L4, L5, and S1. All holes were manually palpated with no evidence of any cortical breaches. We tapped and placed 6.5 x 50 mm screws bilaterally in L4, left side L5 and S1, and a 6.5 x 45 mm screw on the right L5 and S1, all from the Med[employer]onic Solera 4.75 system. Another 3D Stealth navigation spin demonstrated good placement of the hardware. At this point, the microscope was brought into the field to assist with microscopic dissection and to maintain illumination and magnification. Using a combination of bur tip on the drill, Kerrison punches, and Leksell rongeur, we completed a decompressive laminectomy with bilateral medial facetectomies, L4- L5 and L5-S1. We completed aggressive facetectomies on the left side at L4-L5 and L5-S1. At the left foramen we resected a small synovial cyst compressing the nerve root. We moved up to L4-5 where we distracted the interspace and completed a left-sided L4-5 diskectomy. We prepared the cartilaginous endplates and measured interbody space. We then placed a 9 x 23 mm titanium PEEK elevate cage filled with morselized autograft and allograft anteriorly and towards the midline. We packed additional morcellized autograft in the disk space for the interbody fusion. We let down the distraction and moved down to L5-S1 where we distracted the interspace and completed a left-sided L5-S1 diskectomy. We prepared the cartilaginous endplates and measured the interbody space. We placed an 8 x 28 mm titanium PEEK elevate cage filled with morselized autograft and allograft anteriorly and toward the midline. We packed additional morcellized autograft in the disk space for the interbody fusion. We let down the distraction and decorticated the bone on the right side between L4 and S1. The wound was irrigated copiously with bacitracin irrigation. We placed 2 lordotic rods in the heads of the screws between L4 and S1 and secured them down with cap screws, which were then tightened per the fundraising assistant's setting. We injected preservative-free intrathecal narcotics. A drain was left in the subfascial space. We placed morcellized autograft and allograft on the right side between L4 to S1 for the posterolateral fusion, and the wound then closed in multiple layers including Vicryl sutures for the deep layers and Dermabond for the skin. The patient's wounds were dressed sterilely. She was then flipped supine onto the transport cart where she was awakened, extubated, and taken to the recovery room in improved neurological condition. There were no complications and no noted changes on neuromonitoring throughout the procedure. /[id number]/MODL MTDD
[2017-12-09] MEDS: PRIMIDONE 50 MG TAB PO SCH (21:00)
[2017-12-10] MEDS: NS 1,000 ML IV SCH (01:41)
[2017-12-10] MEDS: HYDROCODONE/APAP 5/325 TAB PO PRN ×4 (04:07→20:01)
[2017-12-10] MEDS: LEVOTHYROXINE 50 MCG TAB PO SCH (05:15)
[2017-12-10 05:32] LABS: PLATELET COUNT 174 10^3/uL (150-400)
[2017-12-10] MEDS: ERYTHROMYCIN 0.5% 1 GM OPHT.OINT RTEYE SCH ×3 (08:16→22:31)
[2017-12-10] MEDS: FAMOTIDINE 20 MG TAB PO SCH ×2 (08:16→20:01)
[2017-12-10] MEDS: METHOCARBAMOL 750 MG TAB PO SCH ×3 (08:17→22:31)
[2017-12-10] MEDS: GABAPENTIN 400 MG CAP PO SCH ×2 (08:17→20:01)
[2017-12-10] MEDS: SENNOSIDES/DOCUSATE SODIUM TAB PO SCH ×2 (08:17→22:32)
--- NOTE | 2017-12-10 08:39 | SOAPPROG ---
LENNY Progress Note Assessment/Plan: Assessment: 62 y/o F POD #1 s/p L4-S1 laminectomy and left L4/5/S1 TLIF with left L5/S1 cyst resection - improved Plan: - patient is doing excellent this morning and has improvement with her left foot weakness and pain - xrays today - rigid LSO brace to arrive this morning and to be worn whenever out of bed - pain control - PT/OT - dc planning - all questions answered and the patient was pleased with her progress 12/10/17 08:35 Subjective: left leg pain and weakness have improved; no issues overnight Objective: Vital Signs Temp Pulse Resp BP Pulse Ox 36.9 C 87 16 147/77 H 97 12/10/17 07:37 12/10/17 07:37 12/10/17 07:37 12/10/17 07:37 12/10/17 07:37 Laboratory Results 12/10/17 04:46 12/10/17 05:30 12/09/17 12/10/17 12/11/17 05:59 05:59 05:59 Intake Total 3100 2044 Output Total 500 2445 Balance 2600 -401 PT 13.8 SEC (12.0-15.0) 12/08/17 09:40 INR 1.04 (0.83-1.16) 12/08/17 09:40 Awake, alert, oriented X 3 Following commands in all 4 Extrem KOBI with serosanguinous drainainge dressing C/D/I 5/5 right LE 4+/5 left HP, KF/KE, 5- left DF/EHL, 5 PF Sensation intact to light touch throughout ICD10 Worksheet Patient Problems: Problems Problem Status Onset Lower back pain Acute
[2017-12-10] MEDS ORDERED: NS 1,000 ML IV ONE (09:00)
--- NOTE | 2017-12-10 09:26 | HOSPPROG ---
Hospitalist Progress Note Assessment/Plan: #Syncope: vasovagal. SBP in 40s, improved quickly with IVFs. Multifactorial with opioids, muscles relaxers, decreased PO intake. Cont IVFs. Hold BP meds #Hypokalemia/hypomagnesium: repleted #Spondylitis/left foot weakness: s/p L4-5, L5-S1 TLIF today. Pain control oer NSGY #Hypovolemic hyponatremia: Endorses decreased p.o. intake. Hold diuretic #Hypothyroidism: levothyroxine. #Hypertension: hold BP meds #Diet: regular #DVT ppx: per NSGY Disp: cont PT/OT Subjective: STAT team called for hypotension. Was walking, then sitting down on bed, became dizzy and passed out per RN Objective: Vital Signs Temp Pulse Resp BP Pulse Ox 36.9 C 74 12 113/62 97 12/10/17 07:37 12/10/17 09:03 12/10/17 09:03 12/10/17 09:03 12/10/17 09:01 Laboratory Results 12/10/17 04:46 12/10/17 05:30 12/09/17 12/10/17 12/11/17 05:59 05:59 05:59 Intake Total 3100 2044 Output Total 500 2445 Balance 2600 -401 PT 13.8 SEC (12.0-15.0) 12/08/17 09:40 INR 1.04 (0.83-1.16) 12/08/17 09:40 - Time Spent With Patient Time Spent with Patient: greater than 35 minutes Time Spent with Patient: Greater than 35 minutes spent on this patients care, greater than 50% of time spent counseling, educating, and coordinating care regarding the above mentioned plan. - Physical Exam Constitutional: other (pale, diaphoretic. Answering questions appropriately) Ears, Nose, Mouth, Throat: moist mucous membranes Cardiovascular: regular rate and rhythym Respiratory: no respiratory distress Gastrointestinal: normoactive bowel sounds Genitourinary: no bladder fullness Musculoskeletal: full muscle strength, other (KOBI drain with sanginous drainage) Neurologic: AAOx3, CN II-XII Intact Psychiatric: interacting appropriately ICD10 Worksheet Patient Problems: Problems Problem Status Onset Lower back pain Acute
[2017-12-10] MEDS: ONDANSETRON DISINTEGRATING 4 MG TAB PO PRN (11:47)
--- NOTE | 2017-12-10 14:32 | ASMTCMCOM ---
CM Note CM Note Notes: CM met w/ pt for dispo planning. Therapies are recommending HC. Pt is agreeable to HC. Pt does not hae a preference on HC agencies as long as it is covered by her insurance. CM left a msg for [facility] regarding referral. CM to follow up tomorrow to see if [facility] can accept. Pts phone number is [phone]. Pts Johnny's phone number is [phone]. CM confirmed pts address. CM to follow. Plan: HC; PT/OT Date Signed: 12/10/2017 02:32 PM Electronically Signed By:DOUGLAS Alvarado
[2017-12-10] MEDS: PRIMIDONE 50 MG TAB PO SCH (20:01)
[2017-12-11] MEDS: HYDROCODONE/APAP 5/325 TAB PO PRN ×3 (00:27→17:37)
[2017-12-11] MEDS: LEVOTHYROXINE 50 MCG TAB PO SCH (05:10)
--- NOTE | 2017-12-11 08:56 | NEUSURGPN ---
Assessment/Plan: 62 y/o F POD #2 s/p L4-S1 laminectomy and left L4/5/S1 TLIF with left L5/S1 cyst resection - improved Plan: - patient is doing excellent this morning and has improvement with her left foot weakness and pain - rigid LSO brace to arrive this morning and to be worn whenever out of bed -Post op xrays demonstrate intact hardware - pain control - PT/OT - dc planning, likely to SNF - all questions answered and the patient was pleased with her progress -Discussed with Dr. Temple Subjective: Left foot weakness and dizziness with standing. Pain improved Objective: NAD A&Ox3 MAEX4 5/5 and equal in BUE and BLE. Incision c/d/i KOBI: serosanguineous - Physician Discussed Patient with : [facility] Physical Exam - Vitals, I&O, Labs I and O 12/10/17 12/11/17 12/12/17 05:59 05:59 05:59 Intake Total 2044 1400 Output Total 2445 155 Balance -401 1245 Weight 58.06 kg Intake: Oral (ml) 700 400 IV Intake (ml) 1010 IV Infused (ml) 334 1000 Ns 1,000 ml @ 100 mls/hr 334 IV CONT MAGALY Rx#: [id number] Ns 1,000 ml @ As Directed 1000 IV ONCE ONE Rx#: [id number] Output: Urine (ml) 2200 150 Bedside Commode 150 Catheter 1750 Toilet 450 Estimated Blood Loss (ml) 100 KOBI Drain Output (ml) 145 5 Posterior Back Jose 145 5 Yu Other: Number of Voids Bedside Commode 1 1 Toilet 1 Number of Stools Toilet 1 Vital Signs Temp Pulse Resp BP Pulse Ox 36.8 C 85 14 114/74 94 12/11/17 07:45 12/11/17 07:45 12/11/17 07:45 12/11/17 07:45 12/11/17 07:45 Laboratory Results 12/10/17 04:46 12/11/17 04:28 ICD10 Worksheet Patient Problems: Problems Problem Status Onset Lower back pain Acute
[2017-12-11] MEDS: GABAPENTIN 400 MG CAP PO SCH ×2 (09:21→21:32)
[2017-12-11] MEDS: SENNOSIDES/DOCUSATE SODIUM TAB PO SCH ×2 (09:21→20:18)
[2017-12-11] MEDS: METHOCARBAMOL 750 MG TAB PO SCH ×3 (09:21→21:32)
[2017-12-11] MEDS: FAMOTIDINE 20 MG TAB PO SCH ×2 (09:21→21:32)
[2017-12-11] MEDS: ERYTHROMYCIN 0.5% 1 GM OPHT.OINT RTEYE SCH ×3 (09:21→21:32)
[2017-12-11] MEDS: ONDANSETRON DISINTEGRATING 4 MG TAB PO PRN (11:13)
--- NOTE | 2017-12-11 12:02 | ASMTCMCOM ---
CM Note CM Note Notes: [facility] has approved pt for home care. Pt wants to discuss with . Pt also given a list of other home care agencies. D/C possible tomorrow or the next day. D/C plan: Home with [facility] pending approval from Date Signed: 12/11/2017 12:01 PM Electronically Signed By:Radha Bassett
--- NOTE | 2017-12-11 13:35 | HOSPPROG ---
Hospitalist Progress Note Assessment/Plan: #Hypokalemia/hypomagnesium: repleted #Spondylitis/left foot weakness: s/p L4-5, L5-S1 TLIF today. Pain control oer NSGY #Hypovolemic hyponatremia: Endorses decreased p.o. intake. Hold diuretic #Hypothyroidism: levothyroxine. #Hypertension: hold BP meds for now. May restart when consistently 140s #DVT ppx: per NSGY Will sign off. please call with questions Subjective: up to chair on own today Objective: Vital Signs Temp Pulse Resp BP Pulse Ox 37.1 C 85 15 120/75 92 12/11/17 11:29 12/11/17 11:29 12/11/17 11:29 12/11/17 11:29 12/11/17 11:29 Laboratory Results 12/10/17 04:46 12/11/17 04:28 12/10/17 12/11/17 12/12/17 05:59 05:59 05:59 Intake Total 2044 1400 350 Output Total 2445 155 Balance -401 1245 350 PT 13.8 SEC (12.0-15.0) 12/08/17 09:40 INR 1.04 (0.83-1.16) 12/08/17 09:40 - Physical Exam Constitutional: no apparent distress Eyes: PERRL Ears, Nose, Mouth, Throat: moist mucous membranes Cardiovascular: regular rate and rhythym Respiratory: no respiratory distress Gastrointestinal: normoactive bowel sounds Genitourinary: no bladder fullness Skin: warm Musculoskeletal: full muscle strength, other (KOBI in place) Neurologic: AAOx3, CN II-XII Intact Psychiatric: interacting appropriately ICD10 Worksheet Patient Problems: Problems Problem Status Onset Lower back pain Acute
[2017-12-11] MEDS: PRIMIDONE 50 MG TAB PO SCH (21:32)
[2017-12-12] MEDS: HYDROCODONE/APAP 5/325 TAB PO PRN ×3 (03:13→11:50)
[2017-12-12] MEDS: LEVOTHYROXINE 50 MCG TAB PO SCH (05:14)
--- NOTE | 2017-12-12 07:42 | PDIAF ---
- Diagnosis Code Status: Full Code - Medication Management Discharge Medications: Medications to Continue on Transfer Acetaminophen [Tylenol ES 500 mg (*)] 500 - 1,000 mg PO Q8 12/08/17 [Last Taken 12/07/17] Chlorthalidone [Chlorthalidone 25 mg (*)] 25 mg PO DAILY@1600 12/08/17 [Last Taken 12/07/17] Gabapentin [Neurontin 100 MG (*)] 100 mg PO BID 12/08/17 [Last Taken 12/07/17] Gabapentin [Neurontin 300 MG (*)] 300 mg PO BID 12/08/17 [Last Taken 12/07/17] Levothyroxine [Synthroid 50 mcg (*)] 50 mcg PO DAILY06 12/08/17 [Last Taken ] Losartan Potassium [Cozaar 25 mg (*)] 25 mg PO DAILY 12/08/17 [Last Taken ] Losartan Potassium [Cozaar 50 mg (*)] 50 mg PO DAILY 12/08/17 [Last Taken ] Primidone [Mysoline] 50 mg PO HS 12/08/17 [Last Taken 12/07/17] Hydrocodone/APAP 5/325 [Hull 5/325 (*)] 1 - 2 tab PO Q4H PRN #84 tab 12/12/17 [ Last Taken Unknown] Methocarbamol [Robaxin 750 mg (*)] 750 mg PO TID #60 tab 12/12/17 [Last Taken Unknown] Ondansetron Odt [Zofran Odt 4 mg (*)] 4 mg PO Q4HRS PRN #30 tab 12/12/17 [Last Taken Unknown] Polyethylene Glycol 3350 [Miralax 17 gm (*)] 17 gm PO DAILY PRN pkt 12/12/17 [ Last Taken Unknown] Sennosides/Docusate Sodium [Senokot-S] 1 - 2 tab PO BID tab 12/12/17 [Last Taken Unknown] Discharge Medications: Refer to the Discharge Home Medication list for PRN reason. - Orders Services needed: Home Care, Physical Therapy, Occupational Therapy Home Care Face to Face: I certify that this patient was under my care and that I had the required [id number] encounter meeting the encounter requirements on the discharge day. My findings support the fact that the patient is homebound as defined in Home Care Face to Face Continued: [facility] Chapter 7 Medicare Benefits Manual 30.1.1 , The condition of the patient is such that there exists a normal inability to leave home and consequently, leaving home would require a considerable and taxing effort. Diet Recommendation: no restrictions on diet Diet Texture: Regular Texture Diet Rashard Stockings Discontinue Date: Once walking 200 yards 3 times a day Wound Care Instructions: Follow up with Dr. Temple in 2 weeks. No NSAIDs for 6 months (ibuprofen, aleve, naproxen, celebrex). May shower tomorrow 12/13, keep showers short 5-7 minutes no scrubbing, pat dry keep clean and dry no dressing needed. No bending, lifting, twisting more than 5-10 pounds. Monitor your incision for signs of infection, pus like drainage, fever, chills. Call [facility] with any questions or concerns [phone] Activity/Weight Bearing Restrictions: Follow up with Dr. Temple in 2 weeks. No NSAIDs for 6 months (ibuprofen, aleve, naproxen, celebrex). May shower tomorrow 12/13, keep showers short 5-7 minutes no scrubbing, pat dry keep clean and dry no dressing needed. No bending, lifting, twisting more than 5-10 pounds. Monitor your incision for signs of infection, pus like drainage, fever , chills. Call [facility] with any questions or concerns [phone] Additional Instructions: Follow up with Dr. Temple in 2 weeks No NSAIDs for 6 months (ibuprofen, aleve, naproxen, celebrex) May shower tomorrow 12/13, keep showers short 5-7 minutes no scrubbing, pat dry keep clean and dry no dressing needed No bending, lifting, twisting more than 5-10 pounds Monitor your incision for signs of infection, pus like drainage, fever, chills Call [facility] with any questions or concerns [phone] - Follow Up Care Current Providers and Referrals: Jeanne Greenfield DO [Primary Care Provider] - As per Instructions Tej Temple MD [Medical Doctor] - follow up in 2 weeks
--- NOTE | 2017-12-12 07:44 | NEUSURGPN ---
Assessment/Plan: Assessment/Plan: 62 y/o F POD #3 s/p L4-S1 laminectomy and left L4/5/S1 TLIF with left L5/S1 cyst resection - improved Plan: - patient is doing excellent this morning and has improvement with her left foot weakness and pain. Walking well with walker - rigid LSO brace to arrive this morning and to be worn whenever out of bed -Post op xrays demonstrate intact hardware - pain control - PT/OT - dc planning, home today with home care - all questions answered and the patient was pleased with her progress -Discussed with Dr. Temple Subjective: Stiff muscles this morning when getting out of bed. Has continued left leg pain but weakness improving. Objective: NAD A&Ox3 MAEX4 5/5 and equal in BUE and BLE. Incision c/d/i - Physician Discussed Patient with : [facility] Physical Exam - Vitals, I&O, Labs I and O 12/11/17 12/12/17 12/13/17 05:59 05:59 05:59 Intake Total 1400 1100 Output Total 155 Balance 1245 1100 Intake: Oral (ml) 400 1100 IV Infused (ml) 1000 Ns 1,000 ml @ As Directed 1000 IV ONCE ONE Rx#: [id number] Output: Urine (ml) 150 Bedside Commode 150 KOBI Drain Output (ml) 5 Posterior Back Jose 5 Yu Other: Number of Voids Bedside Commode 1 4 Toilet 1 1 Number of Stools Toilet 1 Vital Signs Temp Pulse Resp BP Pulse Ox 37.3 C 87 16 144/81 H 93 12/12/17 03:03 12/12/17 03:03 12/12/17 03:03 12/12/17 03:03 12/12/17 03:03 Laboratory Results 12/10/17 04:46 12/11/17 04:28 ICD10 Worksheet Patient Problems: Problems Problem Status Onset Lower back pain Acute
[2017-12-12] MEDS: METHOCARBAMOL 750 MG TAB PO SCH (07:52)
[2017-12-12] MEDS ORDERED: ENOXAPARIN 40 MG/0.4 ML SYR SC SCH (09:00)
[2017-12-12] MEDS: ERYTHROMYCIN 0.5% 1 GM OPHT.OINT RTEYE SCH (09:35)
[2017-12-12] MEDS: SENNOSIDES/DOCUSATE SODIUM TAB PO SCH (09:35)
[2017-12-12] MEDS: FAMOTIDINE 20 MG TAB PO SCH (09:36)
[2017-12-12] MEDS: GABAPENTIN 400 MG CAP PO SCH (09:36)
[2017-12-12 10:48] VITALS: BP 129/91
--- NOTE | 2017-12-12 11:17 | ASMTLACE ---
LACE Length of stay for Answers: 4-6 days current admission Acuity / Level of Answers: Yes Care: Did the patient have an inpatient admission? 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
--- NOTE | 2017-12-12 11:18 | ASMTCMCOM ---
CM Note CM Note Notes: Pt medically stable for d/c with [facility] OT/PT. Orders to be obtained via [facility]. Date Signed: 12/12/2017 11:17 AM Electronically Signed By:YESSENIA Cuevas
--- NOTE | 2017-12-12 16:49 | ASDISCHSUM ---
Discharge Information Plan Status:Home with Home Health Medically Cleared to Leave: Discharge Date:12/12/2017 12:05 PM D/C Disposition:Home Health Service ADT D/C Disposition:Home Health Service Projected Discharge Date:12/12/2017 11:00 AM Transportation at D/C:Family Discharge Delay Reason: Follow-Up Date:12/12/2017 11:00 AM Discharge Slot: Final Diagnosis: Placement Information Referral Type:*Home Health Care Services Referral ID:[id number] Provider Name:[facility] Address 1:[address] Address 2: City:[place] Selection Factors: State:[place] Patient Contact Information Contact Name:ROBERTELIAN Relationship: Address:[address] City:[place] Alternate Phone: State/Zip Code:[place] [address] Email: Financial Information [facility] Primary Plan Number:[id number] Secondary Plan Desc: Secondary Plan Number: Assessment Information LACE LACE Length of stay for Answers: 4-6 days current admission Acuity / Level of Answers: Yes Care: Did the patient have an inpatient admission? 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 Pt admitted for never impingement and pain. Plan for surgery per ED note. Pt is and lives in [place]. There are PT and OT evals pending. Case Management d/c poc: To be determined. Case Management to follow. Date Signed: 12/08/2017 05:14 PM Electronically Signed By:Patricia Hodges RN [facility] CM Progress Note CM Note CM Note Notes: CM met w/ pt for dispo planning. Therapies are recommending HC. Pt is agreeable to HC. Pt does not hae a preference on HC agencies as long as it is covered by her insurance. CM left a msg for [facility] regarding referral. CM to follow up tomorrow to see if [facility] can accept. Pts phone number is [phone]. Pts Johnny's phone number is [phone]. CM confirmed pts address. CM to follow. Plan: HC; PT/OT Date Signed: 12/10/2017 02:32 PM Electronically Signed By:DOUGLAS Alvarado [facility] CM Progress Note CM Note CM Note Notes: [facility] has approved pt for home care. Pt wants to discuss with . Pt also given a list of other home care agencies. D/C possible tomorrow or the next day. D/C plan: Home with [facility] pending approval from Date Signed: 12/11/2017 12:01 PM Electronically Signed By:Radha Bassett BC CM Progress Note CM Note CM Note Notes: Pt medically stable for d/c with [facility] OT/PT. Orders to be obtained via [facility]. Date Signed: 12/12/2017 11:17 AM Electronically Signed By:YESSENIA Cuevas Intervention Information
--- NOTE | 2017-12-24 14:42 | GDS ---
ADMITTING DIAGNOSES: Lumbar stenosis, intractable low back pain, left lower extremity radiculopathy with weakness. INTERVENTIONS: Operations, L4-5, L5-S1 transforaminal lumbar interbody fusion with Dr. Temple on Dec. BRIEF HISTORY: The patient is a 62-year-old female, who had seen Dr. Temple in the office and was pl anning on surgery in the future. The patient was experiencing exacerbation of her terrible low back pain and left lower extremity pain and weakness and went to the emergency room at [facility]. The patient underwent surgery at L4-5 and L5-S1 fusion with Dr. Temple the following day. She tolerated the procedure well without complication and she was admitted to the floor following mica ariella. Patient was seen by Physical and Occupational Therapy. There were no other consults on this a dmission. DISCHARGE DISPOSITION: The patient was discharged home, self-care in stable condition. DISCHARGE MEDICATIONS: Please see discharge reconciliation for medications. DISCHARGE INSTRUCTIONS: Patient to avoid any bending or twisting at the waist. She is to avoid lift ing greater than 10 pounds for the next 2 weeks. The patient is instructed to wear her brace anytime she is out of bed, aside from being in the shower. The patient will follow up in the office in 2 we eks for postoperative visit, should she have any questions prior to then she will give our office a c all. /[id number]/MODL
== END 2017-12-12 12:05 | disposition home health service (06) | DRG 454 ==
LOC: F3N 12:14
PROVIDERS: ADMIT Neurological Surgery; ATTEND Neurological Surgery
PROC: 4A1004G Monitoring of Central Nervous Electrical Activity, Intraoperative, Open Approach (ICD-10-PCS; principal; 2017-12-09 08:00)
PROC: 00NY0ZZ Release Lumbar Spinal Cord, Open Approach (ICD-10-PCS; principal; 2017-12-09 08:00)
PROC: 0SG3071 Fusion of Lumbosacral Joint with Autologous Tissue Substitute, Posterior Approach, Posterior Column, Open Approach (ICD-10-PCS; principal; 2017-12-09 08:00)
PROC: 01NB0ZZ Release Lumbar Nerve, Open Approach (ICD-10-PCS; principal; 2017-12-09 08:00)
PROC: 0SG0071 Fusion of Lumbar Vertebral Joint with Autologous Tissue Substitute, Posterior Approach, Posterior Column, Open Approach (ICD-10-PCS; principal; 2017-12-09 08:00)
PROC: 8E0WXBZ Computer Assisted Procedure of Trunk Region (ICD-10-PCS; principal; 2017-12-09 08:00)
PROC: 0SG30AJ Fusion of Lumbosacral Joint with Interbody Fusion Device, Posterior Approach, Anterior Column, Open Approach (ICD-10-PCS; principal; 2017-12-09 08:00)
PROC: 0SG00AJ Fusion of Lumbar Vertebral Joint with Interbody Fusion Device, Posterior Approach, Anterior Column, Open Approach (ICD-10-PCS; principal; 2017-12-09 08:00)
DX: M43.16 Spondylolisthesis, lumbar region (principal); E87.1 Hypo-osmolality and hyponatremia; M71.38 Other bursal cyst, other site; M51.16 Intervertebral disc disorders with radiculopathy, lumbar region; I10 Essential (primary) hypertension; J45.909 Unspecified asthma, uncomplicated; E03.9 Hypothyroidism, unspecified; G89.29 Other chronic pain; E86.1 Hypovolemia
CPT/HCPCS: 97116-GP; 97161-GP; 97165-GO; 97530-GP; 97535-GO; C1713; J0171; J0690; J1170; J1650; J2001; J2250; J2274; J2370; J2704; J3010; J3475

== ENCOUNTER 2018-01-10 09:36 | Emergency (ER) | payer OTHER ==
--- NOTE | 2018-01-10 11:04 | EDPHY ---
HPI/HX/ROS/PE/MDM Narrative: HISTORY OF PRESENT ILLNESS: Patient presents by private vehicle with complaints of left leg pain, swelling and worsening tremor. She is status post lumbar diskectomy, cystectomy and treatment for spondylolisthesis approximately 1 month ago. She has no saddle anesthesia or incontinence of bowel or bladder. Her primary concern was increasing swelling over the lower leg and foot over last night. This was after sleeping in an upright position. At time of examination the swelling has resolved. She still has complaints of worsening tremor and weakness on the left leg. The weakness was present prior to her surgery but has worsened. She has seen her surgeon once since surgery and has an appointment 2 weeks. She has no numbness lower extremity. No back pain but she does express concern of "I am worried I am messed up my back." She is able to ambulate but reports some difficulty doing so at times. No other associated complaints or modifying factors. EXAMINATION: General Appearance: Alert, no distress. Conversing in full sentences Head: normocephalic, atraumatic Neck: Normal inspection, supple, non-tender Respiratory: No retractions or distress Cardiovascular: Regular rate and rhythm. Symmetric DP PT pulses 2+. Back: Well-healed surgical incision on the lumbar spine with some eschar present. There is minimal tenderness in the area. No crepitus or deformity. Neurological: A&O, nonfocal, light sensory symmetric in lower extremities. Strength of the right knee and ankle are 5/5. Strength of the left thing ankles 4/5. Normal proprioception of the great toe symmetrically. Skin: Warm and dry, no rash. Surgical incision as above. No cellulitis or erythema of the lower extremities. Extremities: Nontender. Minimal left pedal edema that is nonpitting. No erythema. Psychiatric: Mood and affect normal DIFFERENTIAL DIAGNOSES: Including but not limited to peripheral edema, DVT, resting tremor, neuropathy, lumbar radiculopathy MDM: 12:05 p.m. Left lower extremity edema that has nearly resolved and there is a negative DVT study. She has ongoing complaints from her low back with left lower extremity complaints of uncertain etiology. I do feel that she has minimal weakness of the left lower extremity, and she and her spouse feel this may be a baseline. She has no incontinence of bowel or bladder. She has no obvious signs of diskitis or dehiscence of the low back. I discussed the case with Dr. Temple, and he will provide consultation in the emergency department shortly. 12:30 p.m. Patient has been evaluated by neurosurgery Janiya HENDERSON. She and Dr. Temple recommend plain film of the lumbar spine. The also recommend that she resume her previous prescription of Hercules for better pain control. She will review the x-ray. 1:30 p.m. X-ray is unremarkable for any acute findings with hardware in place. Patient has a plan with Neurosurgery to follow up accordingly and resume her previous Hercules. She has a plan to follow up with PCP regarding her leg edema. She has instructions to return here for return of swelling, increasing pain, any chest pain or shortness of breath. I have answered all of her questions. She is ambulatory emergency department. She is discharged home stable condition. SUPERVISION: Patient was independently examined, but I discussed the case with my secondary supervising physician Dr. Duke CONSULTATION: Neurosurgery, (Johnson Yoder) ED Course: The patient was evaluated and managed by the Physician Psychosocial Rehabilitation Counselor. I discussed the patient's presentation and course with the midlevel provider with them and agree with the evaluation. My co-signature indicates that I have reviewed this chart and I agree with the findings and plan of care as documented. I am the secondary supervising physician. (Franny Duke) - Data Points Imaging Results: Imaging Impressions Extremity Venous Study 01/10/18 10:40 Impression: No evidence of deep vein thrombosis. Findings called to the ED 01/10/2018 at 11:21. Medications Given: Discontinued Medications Hydrocodone Bitart/Acetaminophen (Hercules 5/325) 1 tab PO EDNOW ONE Stop: 01/10/18 12:32 Last Admin: 01/10/18 12:34 Dose: 1 tab General Time Seen by Provider: 01/10/18 10:43 Initial Vital Signs: Initial Vital Signs Temperature (C) 37.1 C 01/10/18 09:44 Heart Rate 88 01/10/18 09:44 Respiratory Rate 16 01/10/18 09:44 Blood Pressure 126/84 H 01/10/18 09:44 O2 Sat (%) 97 01/10/18 09:44 O2 Delivery Mode Room Air Allergies/Adverse Reactions: oxycodone HCl [From Percocet] Allergy (Severe, Verified 01/10/18 09:42) Hives oxycodone HCl Allergy (Unknown, Uncoded 01/10/18 09:42) Hives Home Medications: Medication Instructions Recorded Acetaminophen [Tylenol ES 500 mg 500 - 1,000 mg PO Q8 12/08/17 (*)] Chlorthalidone [Chlorthalidone 25 25 mg PO DAILY@1600 12/08/17 mg (*)] Levothyroxine [Synthroid 50 mcg 50 mcg PO DAILY06 12/08/17 (*)] Primidone [Mysoline] 50 mg PO HS 12/08/17 Hydrocodone/APAP 5/325 [Hercules 1 - 2 tab PO Q4H PRN #84 tab 12/12/17 5/325 (*)] Methocarbamol [Robaxin 750 mg (*)] 750 mg PO TID #60 tab 12/12/17 Gabapentin 01/10/18 traMADol 01/10/18 Departure - Departure Disposition: Home, Routine, Self-Care Clinical Impression: Postsurgical arthrodesis status, Peripheral edema Chronic back pain Qualifiers: Back pain location: back pain in other location Qualified Code(s): M54.9 - Dorsalgia, unspecified; G89.29 - Other chronic pain; G89.29 - Other chronic pain Condition: Good Instructions: Leg Edema (ED), After Arthrodesis (DC) Additional Instructions: 1. Continue your previous medications per Neurosurgery recommendation. 2. Keep your appointment in 2 weeks with neurosurgery 3. ED precautions for worsening pain, numbness, incontinence of bowel or bladder , weakness, and return of her swelling, any chest pain or shortness of breath Referrals: Jenane Greenfield DO [Primary Care Provider] - As per Instructions Tej Temple MD [Medical Doctor] - As per Instructions
[2018-01-10] MEDS ORDERED: HYDROCODONE/APAP 5/325 TAB PO ONE (12:31)
--- NOTE | 2018-01-10 12:45 | PDCONSULT ---
Product Test Engineer Note: Neurosurgery courtesy consult. A: 62 yo F s/p L4-S1 TLIF/PSF 4 weeks ago with [facility], has baseline LLE tremor. Here for LLE swelling and pain exacerbation P: -Exam reassuring, Doppler neg for DVT, no chest pain or shortness of breath -Recommend going back up to prior dose of Gabapentin, 400mg BID (currently on 300mg BID) -Continue [place] or Tramadol for pain, ok to alternate these meds -No NSAIDs -Will check lumbar xrays -Keep follow up in 2 weeks, call office with any further issues -D/w Dr Temple and ER BEATRIZ Ornelas -Call [facility] with any issues S: Pt resting in bed, worried she did something wrong to her hardware, increase in left leg pain O: AAOx3 NAD VSS MAEx5 Motor 5/5 RLE, appx 5-/5 LLE with resting tremor entire left leg
[2018-01-10 14:30] VITALS: BP 134/87
== END 2018-01-10 14:43 | disposition home or self-care (01) ==
DX: R60.9 Edema, unspecified (principal); M54.9 Dorsalgia, unspecified; G89.29 Other chronic pain; R25.1 Tremor, unspecified; Z98.890 Other specified postprocedural states; Z98.1 Arthrodesis status

== ENCOUNTER 2018-02-25 22:30 | Observation (INO) | payer OTHER ==
[2018-02-25] MEDS ORDERED: NS 1,000 ML IV ONE (22:52)
[2018-02-25] MEDS ORDERED: fentaNYL 100 MCG/2 ML INJ IVP ONE (22:52)
[2018-02-25] MEDS ORDERED: ONDANSETRON 4 MG/2 ML VIAL IVP ONE (22:52)
[2018-02-25] MEDS ORDERED: IOPAMIDOL (ISOVUE 370) 100 ML BTL IV ONE (22:58)
[2018-02-25 23:03] LABS: PLATELET COUNT 293 10^3/uL (150-400)
--- NOTE | 2018-02-25 23:03 | EDPHY ---
H & P Stated Complaint: confusion, unable to form sentences, "foggy" Time Seen by Provider: 02/25/18 22:58 HPI/ROS: HPI CHIEF COMPLAINT: Confusion. HISTORY OF PRESENT ILLNESS: 62-year-old female complex medical history, presents emergency room by private vehicle for increasing confusion. The brought her in by private vehicle. He last saw her normal around 9:00 a.m.. Around 5:00 p.m. He returned home from work and she had a hard time explaining what she did today. She mostly answers I do not know to most of the questions. reports this is very different from her neurological baseline. She is able to answer questions with short answers, she is able to understand what is happening, she is alert or x4. She arrives to the emergency room for confusion. She denies any focal weakness. Of note the patient has a tremor that is rather significant of her left leg. She was followed by [facility] and diagnosed with complex regional pain syndrome. reports that other than her increased confusion and unable to recall the events today reports that she is at her baseline neurological status. Past Medical History: Chronic low back pain, on chronic opioids, complex regional pain syndrome, possible parkinsonian syndrome Past Surgical History: Lumbar surgery Social History: Denies daily use drugs alcohol tobacco. Takes narcotics daily. Family History: Noncontributory. ROS REVIEW OF SYSTEMS: 10 Systems were reviewed and negative with the exception of the elements mentioned in the history of present illness. Exam Constitutional nontoxic, triage nursing summary reviewed, vital signs reviewed , awake/alert. Vital signs stable. Eyes normal conjunctivae and sclera, EOMI, PERRLA. HENT normal inspection, atraumatic, moist mucus membranes, no epistaxis, neck supple/ no meningismus, no raccoon eyes. Respiratory clear to auscultation bilaterally, normal breath sounds, no respiratory distress, no wheezing. Cardiovascular rate normal, regular rhythm, no murmur, no edema, distal pulses normal. Gastrointestinal soft, non-tender, no rebound, no guarding, normal bowel sounds, no distension, no pulsatile mass. Genitourinary no CVA tenderness. Musculoskeletal no midline vertebral tenderness, full range of motion, no calf swelling, no tenderness of extremities, no meningismus, good pulses, neurovascularly intact. Skin pink, warm, & dry, no rash, skin atraumatic. Neurologic neurological exam is unremarkable other than a resting tremor of the left leg that is rather significant on exam, and patient answers I do not know to most questions. However she is able to tell me the date, the president , the location that she is at right nail, and her address, awake, alert and oriented x 3, AAOx3, moves all 4 extremities equally, motor intact, sensory intact, CN II-XII intact, normal cerebellar, normal vision, normal speech. Psychiatric normal mood/affect. Heme/Lymph/Immune no lymphadenopathy. Differential Diagnosis: Includes but is not limited to in a particular order delirium, encephalopathy, infection, UTI, intracranial bleed, CVA Medical Decision Making: Plan for this patient IV establishment blood draw, CT scan head without contrast, CT angiogram head and neck, chest x-ray, EKG, troponin, blood work, UA, drug screen. Re-evaluate. Gentle IV fluids. IV fentanyl 100 mcg have been ordered for pain as the patient is complaining of left leg pain which is chronic for her. Re-evaluation: EKG interpretation by me on record in [facility] system. Impression time of EKG 2312, sinus rhythm rate of 87 no signs of acute ischemia no signs of cardiac arrhythmia. CT scan head without contrast negative for acute bleed or stroke. Called to me by Dr. Cunha. CT angiogram head and neck with IV contrast negative for arterial injury or thrombus or dissection called to me by Dr. Cunha. I spoke with Neurology Dr. Kaye, discussed case in detail. Does recommend MRI during her hospitalization. Not to be done emergently. If MRI was normal feel comfortable with outpatient further care of the symptoms. Additionally I asked the hospitalist service Dr. Lainez to admit. He agrees to admit Source: Patient, Family - Personal History Current Tetanus/Diphtheria Vaccine: Yes - Medical/Surgical History Hx Asthma: No Hx Chronic Respiratory Disease: No Hx Diabetes: No Hx Cardiac Disease: No Hx Renal Disease: No Hx Cirrhosis: No Hx Alcoholism: No Hx HIV/AIDS: No Hx Splenectomy or Spleen Trauma: No Other PMH: Fibromyalgia/chronic fatigue. Mild traumatic brain injury. allergies/sinusitis when young. htn. thyroid condition. hyster,appy,csection, sinus surgery, breast reduction with lipo - Social History Smoking Status: Former smoker Constitutional: Initial Vital Signs Temperature (C) 36.9 C 11/19/18 22:50 Heart Rate 94 02/25/18 22:50 Respiratory Rate 18 02/25/18 22:50 Blood Pressure 182/90 H 02/25/18 22:50 O2 Sat (%) 97 02/25/18 22:50 O2 Delivery Mode Room Air O2 (L/minute) 2 Allergies/Adverse Reactions: No Known Allergies Allergy (Verified 02/26/18 09:24) Home Medications: Medication Instructions Recorded Chlorthalidone [Chlorthalidone 25 25 mg PO DAILY 12/08/17 mg (*)] Levothyroxine [Synthroid 50 mcg 50 mcg PO DAILY06 12/08/17 (*)] Gabapentin [Neurontin 400 MG (*)] 400 mg PO BID 01/10/18 Baclofen [Baclofen 10 mg (*)] 10 mg PO TID PRN 02/25/18 Carbidopa/Levodopa 1 each PO TID@,,02/25/18 [Carbidopa-Levodopa 25-100 Tab] Albuterol [Proventil Inhaler HFA 1 - 2 puffs IH DAILY PRN 02/26/18 (*)] Herbals/Supplements -Info Only 1 ea PO DAILY 02/26/18 oxyCODONE IR [Oxycodone Ir (*)] 5 - 10 mg PO Q4-6PRN PRN 02/26/18 Medical Decision Making - Data Points Laboratory Results: Laboratory Results 02/25/18 22:20 02/25/18 22:40 Medications Given: Baclofen (Baclofen) 10 mg PO TID [facility] Stop: 08/25/18 15:59 Last Admin: 02/26/18 21:23 Dose: 10 mg Carbidopa/Levodopa (Sinemet) 1 tab PO TID@,, [facility] Stop: 08/25/18 17:59 Last Admin: 02/26/18 17:10 Dose: 1 tab Diclofenac Sodium (Diclofenac Sodium 1% Gel) 4 gm TP QID [facility] Stop: 08/25/18 15:59 Last Admin: 02/26/18 21:26 Dose: Not Given Gabapentin (Neurontin) 400 mg PO BID [facility] Stop: 08/25/18 20:59 Last Admin: 02/26/18 21:23 Dose: 400 mg Levothyroxine Sodium (Synthroid) 50 mcg PO DAILY06 [facility] Stop: 08/25/18 15:14 Last Admin: 02/26/18 17:09 Dose: 50 mcg Oxycodone HCl (Oxycodone Ir) 5 - 10 mg PO Q4HRS PRN PRN Reason: Pain, Severe Able to Take PO Stop: 03/08/18 03:13 Last Admin: 02/26/18 21:22 Dose: 5 mg Discontinued Medications Fentanyl (Sublimaze) 100 mcg IVP EDNOW ONE Stop: 02/25/18 22:53 Last Admin: 02/25/18 23:07 Dose: 100 mcg Fentanyl (Sublimaze) 100 mcg IVP EDNOW ONE Stop: 02/26/18 01:17 Last Admin: 02/26/18 01:17 Dose: 100 mcg Sodium Chloride (Ns) 1,000 mls @ 0 mls/hr IV ONCE ONE; Wide Open PRN Reason: Protocol Stop: 02/25/18 22:53 Last Admin: 02/25/18 23:06 Dose: 1,000 mls Potassium Chloride (Potassium Cl 10 Meq (Premix)) 100 mls @ 100 mls/hr IV Q1H [facility] Stop: 02/26/18 01:44 Last Admin: 02/26/18 01:03 Dose: 100 mls Ondansetron HCl (Zofran) 4 mg IVP EDNOW ONE Stop: 02/25/18 22:53 Last Admin: 02/25/18 23:07 Dose: 4 mg Potassium Chloride (Klor-Con) 10 meq PO ONCE ONE Stop: 02/26/18 16:08 Last Admin: 02/26/18 17:10 Dose: 10 meq Point of Care Test Results: Chemistry 02/25/18 02/25/18 22:51 22:45 POC Sodium 136 mEq/L mEq/L (135-145) POC Potassium 3.0 mEq/L L mEq/L (3.3-5.0) POC Chloride 95 mEq/L L mEq/L (97-110) POC BUN 17 mg/dL mg/dL (7-23) POC Creatinine 0.7 mg/dL mg/dL (0.6-1.0) POC Glucose 99 mg/dL mg/dL (70-100) POC Troponin I 0.01 ng/mL ng/mL (0.00-0.08) ISTAT H&H 02/25/18 22:45 POC Hgb 14.3 gm/dL gm/dL (12.6-16.3) POC Hct 42 % % (38-47) Departure - Departure Disposition: [facility] Clinical Impression: Altered mental status Qualifiers: Altered mental status type: unspecified Qualified Code(s): R41.82 - Altered mental status, unspecified
[2018-02-25] MEDS: POTASSIUM Cl (KCl) 100 ML IV SCH (23:55)
[2018-02-26] MEDS: POTASSIUM Cl (KCl) 100 ML IV SCH (01:03)
[2018-02-26] MEDS ORDERED: fentaNYL 100 MCG/2 ML INJ ONE (01:16)
[2018-02-26] MEDS ORDERED: fentaNYL 100 MCG/2 ML INJ IVP ONE (01:16)
[2018-02-26] MEDS ORDERED: ONDANSETRON DISINTEGRATING 4 MG TAB PO PRN (01:23)
[2018-02-26] MEDS ORDERED: ACETAMINOPHEN 325 MG TAB PO PRN (01:23)
[2018-02-26] MEDS ORDERED: ONDANSETRON 4 MG/2 ML VIAL IVP PRN (01:23)
--- NOTE | 2018-02-26 03:01 | PDGENHP ---
History and Physical - Chief Complaint Confusion - History of Present Illness 62 yo F w/ hx of L leg tremor and pain after spinal surgery presents with confusion. The patient has had a complicated course since undergoing lumbar fusion in December of this year. After the procedure she developed LLE tremor and severe pain. She was evaluated for this at [facility]. Extensive testing was inconclusive, possibly indicative of RSD. She is now on multiple medications in an attempt to control her symptoms. These include oxycodone, carbidopa, and gabapentin. Today her last saw her acting normally around 9 AM. When he returned in the afternoon around 5 PM she was visibly confused. When this persisted he brought her into the ED. During my evaluation the patient is pleasant and cooperative but only A&Ox1. She tells me she feels drowsy but otherwise denies complaints, including focal neurologic symptoms. Evaluation in the ED, including CTH and CTA Head/Neck, was unremarkable. Case discussed with ED physician Dr. Pham; records reviewed and summarized above. History Information - Allergies/Home Medication List Allergies/Adverse Reactions: oxycodone HCl [From Percocet] Allergy (Severe, Verified 01/10/18 09:42) Hives oxycodone HCl Allergy (Unknown, Uncoded 01/10/18 09:42) Hives Home Medications: Chlorthalidone [Chlorthalidone 25 mg (*)] 25 mg PO DAILY@1600 12/08/17 [Last Taken 12/07/17] Levothyroxine [Synthroid 50 mcg (*)] 50 mcg PO DAILY06 12/08/17 [Last Taken ] Gabapentin 01/10/18 [Last Taken Unknown] Baclofen 02/25/18 [Last Taken Unknown] Carbidopa 02/25/18 [Last Taken Unknown] I have personally reviewed and updated: family history, medical history - Past Medical History arthritis Additional medical history: LLE tremor - Surgical History Reports: spinal surgery (e) - Family History Additional family history: No family hx of MS - Social History Smoking Status: Former smoker Review of Systems Review of Systems: ROS: 10pt was reviewed & negative except for what was stated in HPI & below Physical Exam Physical Exam: Temp Pulse Resp BP Pulse Ox 37.1 C 83 17 100/62 95 02/26/18 02:37 02/26/18 02:37 02/26/18 02:37 02/26/18 02:37 02/26/18 02:37 Constitutional: appears nourished, not in pain Eyes: PERRL, EOMI Ears, Nose, Mouth, Throat: moist mucous membranes, no oral mucosal ulcers Cardiovascular: regular rate and rhythym, no murmur, rub, or gallop Respiratory: no respiratory distress, clear to auscultation Gastrointestinal: normoactive bowel sounds, soft, non-tender abdomen Skin: warm, normal color Musculoskeletal: full muscle strength, no muscle tenderness Neurologic: CN II-XII Intact, other (A&Ox1; LLE high frequency, resting tremor noted), No facial droop Psychiatric: interacting appropriately, poor memory Lab Data & Imaging Review 02/25/18 22:20 02/25/18 22:40 WBC 9.74 10^3/uL (3.80-9.50) H 02/25/18 22:20 RBC 4.68 10^6/uL (4.18-5.33) 02/25/18 22:20 Hgb 14.0 g/dL (12.6-16.3) 02/25/18 22:20 POC Hgb 14.3 gm/dL (12.6-16.3) 02/25/18 22:45 Hct 40.0 % (38.0-47.0) 02/25/18 22:20 POC Hct 42 % (38-47) 02/25/18 22:45 MCV 85.5 fL (81.5-99.8) 02/25/18 22:20 MCH 29.9 pg (27.9-34.1) 02/25/18 22:20 MCHC 35.0 g/dL (32.4-36.7) 02/25/18 22:20 RDW 12.7 % (11.5-15.2) 02/25/18 22:20 Plt Count 293 10^3/uL (150-400) 02/25/18 22:20 MPV 9.4 fL (8.7-11.7) 02/25/18 22:20 Neut % (Auto) 63.0 % (39.3-74.2) 02/25/18 22:20 Lymph % (Auto) 28.4 % (15.0-45.0) 02/25/18 22:20 [place] % (Auto) 7.1 % (4.5-13.0) 02/25/18 22:20 Eos % (Auto) 0.9 % (0.6-7.6) 02/25/18 22:20 Baso % (Auto) 0.3 % (0.3-1.7) 02/25/18 22:20 Nucleat RBC Rel Count 0.0 % (0.0-0.2) 02/25/18 22:20 Absolute Neuts (auto) 6.13 10^3/uL (1.70-6.50) 02/25/18 22:20 Absolute Lymphs (auto) 2.77 10^3/uL (1.00-3.00) 02/25/18 22:20 Absolute Monos (auto) 0.69 10^3/uL (0.30-0.80) 02/25/18 22:20 Absolute Eos (auto) 0.09 10^3/uL (0.03-0.40) 02/25/18 22:20 Absolute Basos (auto) 0.03 10^3/uL (0.02-0.10) 02/25/18 22:20 Absolute Nucleated RBC 0.00 10^3/uL (0-0.01) 02/25/18 22:20 Immature Gran % 0.3 % (0.0-1.1) 02/25/18 22:20 Immature Gran # 0.03 10^3/uL (0.00-0.10) 02/25/18 22:20 POC Sodium 136 mEq/L (135-145) 02/25/18 22:45 Sodium 133 mEq/L (135-145) L 02/25/18 22:40 POC Potassium 3.0 mEq/L (3.3-5.0) L 02/25/18 22:45 Potassium 3.2 mEq/L (3.3-5.0) L 02/25/18 22:40 POC Chloride 95 mEq/L (97-110) L 02/25/18 22:45 Chloride 93 mEq/L (97-110) L 02/25/18 22:40 Carbon Dioxide 29 mEq/l (22-31) 02/25/18 22:40 Anion Gap 11 mEq/L (6-14) 02/25/18 22:40 POC BUN 17 mg/dL (7-23) 02/25/18 22:45 BUN 18 mg/dL (7-23) 02/25/18 22:40 Creatinine 0.7 mg/dL (0.6-1.0) 02/25/18 22:40 POC Creatinine 0.7 mg/dL (0.6-1.0) 02/25/18 22:45 Estimated GFR > 60 02/25/18 22:40 Glucose 95 mg/dL (70-100) 02/25/18 22:40 POC Glucose 99 mg/dL (70-100) 02/25/18 22:45 Calcium 9.9 mg/dL (8.5-10.4) 02/25/18 22:40 POC Troponin I 0.01 ng/mL (0.00-0.08) 02/25/18 22:51 Urine Color PALE YELLOW 02/25/18 23:13 Urine Appearance CLEAR 02/25/18 23:13 Urine pH 6.0 (5.0-7.5) 02/25/18 23:13 Ur Specific [place] 1.004 (1.002-1.030) 02/25/18 23:13 Urine Protein NEGATIVE (NEGATIVE) 02/25/18 23:13 Urine Ketones NEGATIVE (NEGATIVE) 02/25/18 23:13 Urine Blood 1+ (NEGATIVE) H 02/25/18 23:13 Urine Nitrate NEGATIVE (NEGATIVE) 02/25/18 23:13 Urine Bilirubin NEGATIVE (NEGATIVE) 02/25/18 23:13 Urine Urobilinogen NEGATIVE EU (0.2-1.0) 02/25/18 23:13 Ur Leukocyte Esterase TRACE (NEGATIVE) H 02/25/18 23:13 Urine RBC 1-3 /hpf (0-3) 02/25/18 23:13 Urine WBC 1-3 /hpf (0-3) 02/25/18 23:13 Ur Epithelial Cells NONE SEEN /lpf (NONE-1+) 02/25/18 23:13 Urine Mucus TRACE /lpf (NONE-1+) 02/25/18 23:13 Urine Glucose NEGATIVE (NEGATIVE) 02/25/18 23:13 Urine Opiates Screen NEGATIVE (NEGATIVE) 02/25/18 23:13 Urine Barbiturates NEGATIVE (NEGATIVE) 02/25/18 23:13 Ur Phencyclidine Scrn NEGATIVE (NEGATIVE) 02/25/18 23:13 Ur Amphetamine Screen NEGATIVE (NEGATIVE) 02/25/18 23:13 U Benzodiazepines Scrn NEGATIVE (NEGATIVE) 02/25/18 23:13 Urine Cocaine Screen NEGATIVE (NEGATIVE) 02/25/18 23:13 U Marijuana (THC) Screen NEGATIVE (NEGATIVE) 02/25/18 23:13 Ethyl Alcohol < 10 mg/dL (0-10) 02/25/18 22:40 Imaging Review: Imaging Impressions Chest X-Ray 02/25/18 22:53 Impression: No acute findings in the chest. Head CT 02/25/18 22:53 Impression: 1. Slightly limited study with no acute intracranial findings. If symptoms persist and clinical suspicion warrants, consider MRI. 2. Diffuse cerebral atrophy with periventricular and subcortical low attenuation consistent with chronic microvascular ischemic gliosis. Findings discussed with Theo Carrasco MD 02/25/2018 at 2341. Head CTA 02/25/18 22:53 Impression: 1. No acute vascular findings. If symptoms persist and clinical suspicion warrants, consider MRI. 2. Additional findings as above. Stenoses are calculated using [place] Symptomatic Carotid Endarterectomy Trial (NASCET) criteria. Findings discussed with Theo Carrasco MD 02/25/2018 at 2341. Neck CTA 02/25/18 22:53 Impression: 1. No acute vascular findings. If symptoms persist and clinical suspicion warrants, consider MRI. 2. Additional findings as above. Stenoses are calculated using [place] Symptomatic Carotid Endarterectomy Trial (NASCET) criteria. Findings discussed with Theo Carrasco MD 02/25/2018 at 2341. Visualized and Interpreted EKG results: Yes EKG Interpretation: Positive for: normal sinsus rhythm Assessment & Plan Assessment: 62 yo F w/ hx of LLE tremor and pain (?RSD) presents with altered mental status. Plan: 1. Acute encephalopathy - Unclear etiology; patient last seen normal this morning around 9 AM. Her neurologic exam is non-focal but she is A&Ox1 with minimal memory of today's events. CTH (personally reviewed/interpreted) without acute findings. CTA Head/Neck also unremarkable. [facility] was consulted in the ED who recommended MRI for further evaluation without full stroke work-up. Considerations at the moment include primary neurologic etiology vs. polypharmacy noting multiple centrally acting medications. - Admit for observation - MRI w/wo ordered - Will place neurology consultation 2. LLE tremor, pain - With onset after recent back surgery. She underwent extensive work-up at [facility] that mast mostly unrevealing, possibly suggestive of RSD or atypical Parkinson's. She is attempting to manage symptoms currently with oxycodone, carbidopa, gabapentin, and baclofen. This combination of centrally acting medications could certainly be contributing to her symptoms. - Will continue oxycodone only for now noting severe pain; cautiously reintroduce additional medications 3. Chronic back pain - S/p lumbar fusion in December. 4. Hypothyroid - Continue LTX Diet - Regular Code - Full Ppx - SCDs Dispo - Admit under observation status
[2018-02-26] MEDS: oxyCODONE IR 5 MG TAB PO PRN ×3 (06:48→21:22)
[2018-02-26] MEDS ORDERED: GADOBUTROL 10 ML VIAL IVP ONE (08:18)
--- NOTE | 2018-02-26 10:34 | GCON ---
NEUROLOGIC CONSULTATION REFERRING PHYSICIAN: Mina Lainez MD HISTORY: The patient is a 62-year-old woman whom I am asked to see in neurologic consultation regard ing confusion. The history is obtained from review of the medical records, as well as direct convers ation with the patient's . She apparently started having tremor in the left lower extremity a round September or October of this year, and also left lower extremity pain. This led to evaluation with nicole picious changes at the L4-5 region for radiculopathy, and she was followed by [facility] and had a se sundeep of injections that did not apparently lead to resolution. In December of this year, she came t o the emergency room with severe pain, and Tej Temple performed an operation on December 09 to try and relieve the pain and problems with the left leg. Her says that there was not expectatio n that the tremor would be helped, and it was not. It did initially help some of the pain, although pain is still a chief complaint, and weakness of the leg was a little bit better as well, but still n ot back to normal. Unfortunately, she has continued to have rather intractable pain, and actually wo rsening tremor, he says, in the left lower extremity over the last several months. This led to a [facility] consultation, and they were apparently there for at least a week, with extensive neurologic input and evaluations. Her says that they were not certain of all the causes, but thought jake moreno might have complex regional pain syndrome, and also might have a parkinsonian syndrome. He says th zhen did a nuclear medicine study that was abnormal, and that led the neurologist to feel that she ough t to consider being on dopamine therapy, which she is taking. He says he is not sure if this is actu ally helping the tremor at this point. He is also confused about dosing of gabapentin because he was told on one hand to maybe wean that, and on the other hand, that it might be inadequate dosing to he lp the pain syndrome. For additional treatment of the pain, she is supposed to get into a pain clini c in [facility] but is not yet in that clinic. She has been on hydrocodone, but more recently, oxycodone 5 mg, which she takes as needed for pain and apparently has some benefit. When she came in, her stormy g screen was negative for any opioids. Her says yesterday morning she seemed to be at her ba tamia, which he says is not completely normal mental state, but definitely significantly different w hen he got home, where she seemed a little bit confused and could not explain details of the day. Th is led to him bringing her to the hospital because he was afraid for possible stroke. She had a CT o f the head and CT angiogram of the head and neck, which were unremarkable. Laboratory studies were g enerally unremarkable. [facility] was consulted through telemedicine, and an MRI was recomme nded, but that has not yet been performed. She was admitted for monitoring because of the altered me ntal state. From the patient's perspective, she has a hard time elaborating on exactly why she is here. She radha gnizes that she is having trouble with her mental state. The tremor in the leg is present, and she s ays there is pain in the left lower extremity, and that is her baseline. The additional past medical history, some arthritis. FAMILY HISTORY: Unremarkable. SOCIAL HISTORY: She smoked in the past, not now. No history of alcohol abuse. REVIEW OF SYSTEMS: No fever, chills, nausea, vomiting, or diarrhea. She denies headache or neck ok n, but says she has low back pain, left leg pain, and the tremor in the leg. MEDICATIONS: Her medications at home: She has been on the Sinemet, exact dosing schedule not sure o f. She has been taking baclofen to try to help with pain, gabapentin as well, and she is on levothyr oxine. She also has oxycodone 5 mg at home. ALLERGIES: Listed to oxycodone, but her says that she is not allergic to it. She has had so me mild reaction in the past to it, but she had received a dose here and has not had any allergic cristóbal ction at this point. PHYSICAL EXAM: VITAL SIGNS: The blood pressure 114/54, pulse of 81, respirations 14. Temperature i s 36.8. GENERAL: She is well developed, no acute distress. NECK: Supple, with no bruits or masses . CARDIAC: Regular rate and rhythm. No murmur. EXTREMITIES: No cyanosis or edema, but she has pa in with just movement of the leg and some pressure on the leg. There is not edema or discoloration o f the left lower extremity. NEUROLOGIC: She is awake and generally alert but has unsustained attent ion and has a hard time initiating and completing sentences, although she will speak in short sentenc es. Sometimes she seems to have thought blocking and loses her train of thought. She knew she was i the [facility] and knew she was in [place], [place]. She is able to tell me that she has children h ere and grandchildren. She knows the month but could not tell me the year. The patient is able to f ollow commands. She is not hallucinating or delusional. Pupils are 3 mm and reactive. Extraocular movements intact. Normal facial sensation and strength. Palate elevates symmetrically. Tongue prot rudes midline. Motor examination: Upper extremity strength is preserved, with no atrophy or abnorma l movements. Lower extremity strength seems to be a little bit reduced in the 4/5 range on the left leg, but some of that is limited by pain. She has a fairly regular tremor in the left lower extremit y present at rest and a little less when she uses it. Reflexes are 2+. No Babinski signs. Sensatio n is preserved for temperature and light touch. In reviewing imaging, she had a brain MRI last obtained here in October of 2017. That showed nonspecifi c white matter changes, but nothing else more specific, and that was being done to investigate her tr emor. She also had a lumbar MRI in July of 2017. That study showed ligament hypertrophy at the L4- L5 level and minimal subluxation, with spinal and foraminal stenoses noted at the L4-L5 level to be m oderate for central canal stenosis and foraminal stenoses, but mild on the left. At the L5-S1 level, there were mild foraminal stenoses. The disk at the L5-S1 level was left paracentral, without signi ficant compressive effects. She had an MRI of the thoracic spine in November 2017. There was no thora cic cord compression and minimal disk disease mainly at T7-T8. The head CT here, CT angiogram of the head and neck are as outlined and unremarkable. The labs from yesterday show unremarkable CBC, unre markable chemistries, except for a potassium a little low at 3.0. Tox screen negative. IMPRESSION: Total unit time of 75 minutes. The patient has a very complex case of left lower extrem ity tremor with pain and subsequent surgery in December with initial beneficial results, but then villalobos s developed an intractable pain syndrome with ongoing tremor. Based on the information from her husb and, it sounds as if the working diagnosis is a parkinsonian syndrome confirmed by a dopamine transpo rter scan on SPECT analysis, as well as suspicion for complex regional pain syndrome, again from [facility]. I do not have those records for details, but those would be helpful to see. The reason she is in the hospital, however, is for some confusion. This is likely related to medication side effects, but we need to look out for any occult ischemic change, so we will obtain br ain MRI to make sure nothing is missed there. Otherwise, it would be the process of adjusting medica tions to minimize psychoactive drugs, but help control her pain as best as possible. She should go t o the Movement Disorder Clinic at the [facility], which comes to [place] every few weeks, for ongoing management of this very complex parkinsonian syndrome, and they are already working [facility] rd a Pain Clinic consultation at [facility]. Copy requested to: Dr. Greenfield [facility] /[id number]/MODL
--- NOTE | 2018-02-26 13:48 | HOSPPROG ---
Hospitalist Progress Note Assessment/Plan: 62 yo F w/ hx of LLE tremor and pain (?RSD) presents with altered mental status. Reviewed her care w Dr Vitale, first encounter, chart reviewed. *acute encephalopathy -CT of head showed nothing acute -CTA of head and neck are unremarkable -MRI shows nothing acute -patient and state that narcotics help most w pain, but she also sleeps and isn't interactive -she is alert during my interview,but forgetful *LLE tremor w associated pain - With onset after recent back surgery. -possible parkinsonian syndrome -possibly complex regional pain syndrome -will place her baclofen scheduled, has taken this prn (if this doesn't work, trial of Soma) -trial of topical Voltaren -spoke w neurosurgery and they would like to avoid NSAIDS since she had recent back surgery She underwent extensive work-up at [facility] mostly unrevealing -have encouraged Aria and her to seek alternative treatments such as acupuncture, pool therapy -her left calf is slightly swollen compared to right leg, increase pain w flexion-will get an ultrasound to r/o dvt *Chronic back pain - S/p lumbar fusion in December. -I watched her ambulate, and she did well * Hypothyroid - Continue LTX *underweight w weight loss of 30-40 pounds over the past few years *Plan: get an ultrasound, trial of Voltaren cream on left leg (this is where all of her pain is). >30 minutes talking w the patient, her , Dr Vitale and Dr Temple Subjective: Aria said her left leg is causing chronic pain, she has tremors that are causing the pain. Objective: Vital Signs Temp Pulse Resp BP Pulse Ox 36.8 C 82 20 116/63 94 02/26/18 11:11 02/26/18 11:11 02/26/18 11:11 02/26/18 11:11 02/26/18 11:11 02/25/18 02/26/18 02/27/18 05:59 05:59 05:59 Intake Total 1000 Balance 1000 - Physical Exam Constitutional: chronically ill appearing, uncomfortable, No not in pain Eyes: PERRL Ears, Nose, Mouth, Throat: hearing normal Cardiovascular: regular rate and rhythym Respiratory: no respiratory distress Skin: warm Musculoskeletal: muscular tenderness (left calf, + tremors in left leg only) Neurologic: AAOx3 Psychiatric: interacting appropriately, flat affect ICD10 Worksheet Patient Problems: Problems Problem Status Onset Chronic back pain Acute Lower back pain Acute Peripheral edema Acute Postsurgical arthrodesis status Acute
[2018-02-26] MEDS ORDERED: ALBUTEROL 60 PUFFS/8 GM MDI IH PRN (15:03)
--- NOTE | 2018-02-26 15:03 | ASMTCMCOM ---
CM Note CM Note Notes: Pt in for AMS. Pt had work up at [facility] for leg tremor w pain. Neuro consulting. Pt resides with . No therapies ordered at this time. CM to follow pt for any d/c needs. Date Signed: 02/26/2018 03:02 PM Electronically Signed By:YESSENIA Cuevas
[2018-02-26] MEDS ORDERED: POTASSIUM CL 10 MEQ TAB PO ONE (16:07)
[2018-02-26] MEDS: LEVOTHYROXINE 50 MCG TAB PO SCH (17:09)
[2018-02-26] MEDS: BACLOFEN 10 MG TAB PO SCH ×2 (17:10→21:23)
[2018-02-26] MEDS: CARBIDOPA/LEVODOPA 25 MG/100 MG TAB PO SCH (17:10)
[2018-02-26] MEDS: DICLOFENAC SODIUM 1% 100 GM GEL TP SCH ×2 (17:15→21:26)
[2018-02-26] MEDS: GABAPENTIN 400 MG CAP PO SCH (21:23)
[2018-02-27] MEDS: CARBIDOPA/LEVODOPA 25 MG/100 MG TAB PO SCH (05:12)
[2018-02-27] MEDS: LEVOTHYROXINE 50 MCG TAB PO SCH (05:12)
[2018-02-27] MEDS: oxyCODONE IR 5 MG TAB PO PRN ×2 (05:12→08:12)
--- NOTE | 2018-02-27 07:06 | CPEKG ---
Test Reason : OPEN Blood Pressure : / mmHG Vent. Rate : 087 BPM Atrial Rate : 087 BPM P-R Int : 163 ms QRS Dur : 099 ms QT Int : 401 ms P-R-T Axes : 048 -08 055 degrees QTc Int : 483 ms Sinus rhythm Confirmed by Theo Carrasco ([id number]) on 02/27/2018 7:05:17 AM Referred By: Confirmed By:Theo Carrasco
[2018-02-27] MEDS: DICLOFENAC SODIUM 1% 100 GM GEL TP SCH (07:07)
[2018-02-27 07:34] VITALS: BP 114/68
--- NOTE | 2018-02-27 08:05 | NEUROPROG ---
Assessment: Total unit time of 15 min. The patient has a complex problem with suspected parkinsonian syndrome causing left lower extremity tremor and associated pain syndrome suspected to be in the spectrum of complex regional pain syndrome after [facility] consultation recently for both of these questions. She is followed by Neurosurgery for her radiculopathy and recent spinal surgery as well. That problem seems to be stable. I believe she is safe to be discharged today home and she should follow-up in the [facility] Clinic and establish with a pain clinic, which I believe her is working on in [facility]. Subjective: The patient says that she is hoping to go home today. She continues to have the problem with left lower extremity tremor and some pain but this is her baseline. She is able to explain to me where she is the circumstances as well as where she had gone to the [facility] for special evaluation. Objective: Vital Signs Temp Pulse Resp BP Pulse Ox 36.6 C 78 14 114/68 93 02/27/18 07:30 02/27/18 07:30 02/27/18 07:30 02/27/18 07:30 02/27/18 07:30 02/26/18 02/27/18 02/28/18 05:59 05:59 05:59 Intake Total 1000 400 Balance 1000 400 She is alert and oriented and much more appropriate today with the ability to explain her current situation and the dilemma she is facing. The MRI did not show any evidence of stroke and no significant changes from the scan several months ago. Allergies/Adverse Reactions: No Known Allergies Allergy (Verified 02/26/18 09:24)
[2018-02-27] MEDS: GABAPENTIN 400 MG CAP PO SCH (08:13)
[2018-02-27] MEDS: BACLOFEN 10 MG TAB PO SCH (08:13)
--- NOTE | 2018-02-27 08:55 | HOSPPROG ---
Hospitalist Progress Note Assessment/Plan: 62 yo F w/ hx of LLE tremor and pain (?RSD) presents with altered mental status. Reviewed her care w Dr Vitale. *acute encephalopathy -CT of head showed nothing acute -CTA of head and neck are unremarkable -MRI shows nothing acute *LLE tremor w associated pain - With onset after recent back surgery. -possible parkinsonian syndrome -possibly complex regional pain syndrome -will place her baclofen scheduled -trial of topical Voltaren, not sure this helped w the pain -spoke w neurosurgery and they would like to avoid NSAIDS since she had recent back surgery She underwent extensive work-up at [facility] mostly unrevealing *Chronic back pain - S/p lumbar fusion in December. -I watched her ambulate, and she did well * Hypothyroid - Continue LTX *underweight w weight loss of 30-40 pounds over the past few years *Plan: dc home Subjective: Aria wants to go home today. Objective: Vital Signs Temp Pulse Resp BP Pulse Ox 36.6 C 78 14 114/68 93 02/27/18 07:30 02/27/18 07:30 02/27/18 07:30 02/27/18 07:30 02/27/18 07:30 02/26/18 02/27/18 02/28/18 05:59 05:59 05:59 Intake Total 1000 400 Balance 1000 400 - Physical Exam Constitutional: no apparent distress, other (thin) Eyes: PERRL Ears, Nose, Mouth, Throat: hearing normal Respiratory: no respiratory distress Musculoskeletal: generalized weakness, other (constant tremor in left leg while lying still) Neurologic: AAOx3 Psychiatric: interacting appropriately ICD10 Worksheet Patient Problems: Problems Problem Status Onset Altered mental status Acute Chronic back pain Acute Lower back pain Acute Peripheral edema Acute Postsurgical arthrodesis status Acute
[2018-02-27] MEDS ORDERED: Herbals/Supplements -Info Only PO SCH (09:00)
--- NOTE | 2018-02-27 09:45 | GDS ---
DISCHARGE DIAGNOSES: 1. Acute encephalopathy. 2. Left lower extremity tremor with associated pain/parkinsonian syndrome. 3. Chronic back pain. 4. Hypothyroidism. 5. Underweight with a weight loss of 30-40 pounds over the past year. CONSULTATION: Hugh Vitale MD. HISTORY OF PRESENT ILLNESS: Briefly, the patient is a very sweet 63-year-old woman who has a complex problem with suspected parkinsonian syndrome subsequently causing left lower extremity tremor and associated pain syndrome. She was evaluated at the [facility] in regard to these. She was also seen by Neurosurgery in the past for radiculopathy and recent spine surgery. It has been difficult to control her tremors. She had an MRI which did not show any evidence of a stroke. Recommendation is for her to follow up at the [facility] and establish care with the [facility]. Also other recommendations are for her to look at other treatment options such as acupuncture as well as get doing pool therapy. HOSPITAL COURSE: 1. Acute encephalopathy, resolved. 2. Left lower extremity tremor with associated pain, likely parkinsonian syndrome. Further followup with the [facility]. 3. Chronic back pain. She is not complaining of back pain during my evaluation. 4. Hypothyroidism on Synthroid. 5. Underweight. She has had a weight loss of approximately 30-40 pounds per her . I suspect it is because she has significant tremors. I have really encouraged both of them to make sure she is getting adequate intake. DISCHARGE CONDITION: Stable. VITAL SIGNS: Blood pressure is 114/68, heart rate 78, respiratory rate 14. O2 sats on room air are 92%. Temperature is 36.6 Celsius. MEDICATIONS AT DISCHARGE: Please see the EMR. DISCHARGE INSTRUCTIONS: 1. Recommending alternative treatments such as acupuncture and pool therapy. 2. Further followup with the Movement Disorder Clinic at [facility]. 3. Follow up with the [facility]. /[id number]/MODL MTDD
--- NOTE | 2018-02-27 10:07 | ASMTLACE ---
LACE Length of stay for Answers: 2 days current admission Acuity / Level of Answers: No Care: Did the patient have an inpatient admission? Comorbidities - select Answers: Opioid dependence all that apply / Chronic pain Other Notes: Hx of TBI; HTN # of Emergency department Answers: 3-4 visits in the last 6 months Score: 10 Date Signed: 02/27/2018 10:06 AM Electronically Signed By:YESSENIA Cuevas
--- NOTE | 2018-02-27 10:08 | ASMTCMCOM ---
CM Note CM Note Notes: Pt medically stable for d/c, no CM d/c needs identified. Date Signed: 02/27/2018 10:07 AM Electronically Signed By:YESSENIA Cuevas
== END 2018-02-27 10:00 | disposition home or self-care (01) ==
LOC: F3N 02-26 02:26
PROVIDERS: ADMIT Student in an Organized Health Care Education/Training Program; ATTEND Student in an Organized Health Care Education/Training Program
DX: G93.40 Encephalopathy, unspecified (principal); R25.1 Tremor, unspecified; R63.4 Abnormal weight loss; M79.605 Pain in left leg; M54.9 Dorsalgia, unspecified; G89.29 Other chronic pain; M79.89 Other specified soft tissue disorders; I10 Essential (primary) hypertension; E03.9 Hypothyroidism, unspecified; M79.7 Fibromyalgia; G31.9 Degenerative disease of nervous system, unspecified; Z79.891 Long term (current) use of opiate analgesic; Z98.1 Arthrodesis status; Z87.820 Personal history of traumatic brain injury; Z87.891 Personal history of nicotine dependence
CPT/HCPCS: 70450; 70496; 70498; 70553; 71045; 93005; 93971; 96361; 96365; 96366; 96375; 96376; 99285; G0378; 80305; 82435-PO; 82565-PO; 82947-PO; 84132-PO; 84295-PO; 84484-PO; 84520-PO; 85014-PO; A9585; G0480; J2405; J3010; J3480; Q9967